=== PATIENT | female | born 1940 | race Caucasian/White ===

== ENCOUNTER → 2016-10-29 | Outpatient (CLI) | payer OTHER | LOC: RAD 01:07 | DX: Z12.31 Encounter for screening mammogram for malignant neoplasm of breast (principal) ==

== ENCOUNTER → 2017-06-10 | Outpatient (CLI) | payer OTHER | LOC: CAT 11:27 | DX: Z13.6 Encounter for screening for cardiovascular disorders (principal) ==

== ENCOUNTER → 2017-11-04 | Outpatient (CLI) | payer OTHER | LOC: RAD 11-02 09:54 | DX: Z12.31 Encounter for screening mammogram for malignant neoplasm of breast (principal) ==

== ENCOUNTER 2019-04-27 12:20 | Inpatient (IN) | payer OTHER ==
[~2019-04-27] VITALS: Ht 167.6 cm; Wt 94.8 kg
[2019-04-27 15:03] VITALS: BP 158/84
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
--- NOTE | 2019-04-28 05:23 | NUR ---
ASSUMED CARE ON 04/27/19 @ 19:30, SITTING IN DAY ROOM SOCIALIZING WITH PEERS. COOOPERATED WITH ASSESSMENT, HRRR, LUNGS CTA, ABD SOUNDS N X 4 Q. REPORTS BM ON 04/27 OF NORMAL SIZE AND CONSISITENCY. REPORTS HEARS SOUNDS IN ROOM, AND LIKES THE DAY ROOM. PRN TYLENOL 650 PROVIDED @ 2100 FOR GENERAL PAIN AND TRAZADONE 50 MG PROVIDED @ 21:50 FOR INSOMNIA. STILL AWAKE @ 0015, 50MG TRAZADONE PROVIDED @ AT THAT TIME. SLEPT WELL UNTIL APROXIMATELY 0400, AWAKENED AND CHANGED CLOTHES, REQUESTED SHOES AND WAS PROVIDED SHOES MINUS THE SHOELACES. BED IN LOW POSITION, UP AD AFSHAN. WILL CONTINUE TO MONITOR Q 12 MINUTES FOR PATIENT SAFETY.
--- NOTE | 2019-04-28 05:54 | NUR ---
SLEEP 4.2 HOURS
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
[2019-04-28 09:22] VITALS: BP 126/55
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
--- NOTE | 2019-04-28 09:47 | NUR ---
WOUND CONSULT; ASSESSMENT OF THE LEFT MEDIAL LEG: THE AREA HAS S/S CONSISTANT WITH VENOUS STASIS, SCARRING AND HEMOSIDERIN STAINING. THERE IS A HEALTHY/STABLE SCAB. NO S/S OF INFECTION OR ANY OTHER ACUTE PROSESS. RECOMMENDATIONS: 1-PAINT SCAB WITH BETADINE 2-BORDER FOAM CHANGE M/W/F 3-A ONE LAYER UBIGRIP. DISCUSSED WITH MAXIMO
[2019-04-28 10:10] VITALS: BP 126/35
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
[2019-04-28 14:19] LABS: TSH 2.341 uIU/mL (0.358-3.740)
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
[2019-04-28 19:38] VITALS: BP 135/69
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
[2019-04-29 08:00] VITALS: BP 162/82
--- NOTE | 2019-04-29 09:00 | NUR ---
Assumed care of patient this am. Patient in good spirits, calm and cooperative. Patient ambulates with walker. Patient takes medications whole with fluids. Patient denies hi/si. Patient denies pain. Patient affect soft. Patients assessment shows clear breath sounds, active bowel sounds, and s1 s2 heard with auscultation. Patient denies auditory or visual hallucinations at this time. Will continue to monitor.
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
[2019-04-29 19:15] VITALS: BP 143/91
--- NOTE | 2019-04-29 22:55 | NUR ---
ASSUMED CARE ON 04/29 @ 19:15. SITTING IN DAY ROOM AT A TABLE FACING THE TV. COOPERATED WITH ASSESSMENT, HRRR, LUNGS CTA ALL BARROW, ABD SOUNDS NORMAL X 4Q. ORIENTED TO SELF AND , CURRENT DATE ONLY 2 DAYS OFF. ABLE TO NAME PRESIDENT AND HOSPITAL, PURPOSE OF ADMISSION TO [facility]. REPORTS 25% OF SADNESS AND WORRY, DENIES AH, AND VH AT THIS TIME. TOOK HS MEDS WHOLE WITH WATER, PROVIDED TYLENOL FOR 5/10 GENERAL PAIN AND TRAZADONE 50 FOR INSOMNIA. FOLLOW UP NOTED TO BE SLEEPING. LAYING DOWN IN HER DAY CLOTHES OF COMFORTABLE ATHLETIC CLOTHES. REPORTS LBM YESTERDAY ON 04/28. BED IN LOW POSITION. WILL CONTINUE TO MONITOR Q 12 MINUTES FOR PATIENT SAFETY.
[2019-04-29 23:03] VITALS: BP 143/91
--- NOTE | 2019-04-30 04:25 | NUR ---
HAS SLEPT POORLY AND AWAKENED @ 0400. REPORTS IS THINKING ABOUT HER LIFE, THE GOOD AND THE BAD, AND IS UNABLE TO STAY ASLEEP. TYLENOL 650 PROVIDED FOR GENERAL DISCOMFORT RATED 4/10 AND SNACK OF MILK PROVIDED. TOILETED WITH SMALL BM OUTPUT AND VOIDING URINE. WILL CONTINUE TO MONITOR.
--- NOTE | 2019-04-30 05:26 | NUR ---
ALTERNATELY ASLEEP AND AWAKE ALL NIGHT, SLEPT 8.6 HOURS
[2019-04-30 09:12] VITALS: BP 150/89
[2019-04-30 10:43] VITALS: BP 150/89
--- NOTE | 2019-04-30 13:07 | NUR ---
PATIENT HAS BEEN UP AND OUT ON THE UNIT, AMBULATES WITH SLOW STEADY GAIT. PATIENT IS ALERT AND ORIENTED X 3-4, ABLE TO MALE NEEDS KNOWN. PATIENT TOOK ALL MEDICATION WHOLE WITHOUT DIFFICULTY. PATIENT IS EATING MEALS, AND DRINKING FLUID FAIRLY WELL. PATIENT DENIES SUICIDAL/ HOMICIDAL IDEATION. MOOD IS DEPRESSED, AFFECT IS BLUNTED. PATIENT CONTINUE TO HAVE AUDITORY HALLUCINATION, STATES " I HEAR PHONE RINGING, AND PEOPLE SINGING". NO AGITATION OR AGGRESSION NOTED. PATIENT IS CALM, COOPERATIVE WITH CARE. NO SIGN OF ACUTE DISTRESS NOTED, WILL MONITOR FOR SAFETY.
[2019-04-30 20:54] VITALS: BP 135/78
--- NOTE | 2019-05-01 04:15 | NUR ---
Assumed care of pt @ 1900. Pt calm et cooperative this shift. Took medications whole without difficulty. Ambulates halls ad pema with steady gait. VSWNL. Health assessment with no abnormalities other than previously recorded. Denies SI/HI @ present time. Currently resting in bed with eyes closed. Will continue to monitor per protocol.
[2019-05-01 06:19] LABS: ABSOLUTE NEUTROPHILS 3.9 thou/uL (1.4-8.2); BASOPHILS 0.5 % (0.0-2.0); EOSINOPHILS 1.8 % (0.0-3.0); HEMATOCRIT 38.4 % (37.0-47.0); HEMOGLOBIN 12.2 gm/dL (12.0-15.0); LYMPHOCYTES 12.9 % (24.0-44.0); MCH 26.7 pg (26.0-34.0); MCHC 31.8 g/dL (28.0-37.0); MCV 83.8 fL (80.0-100.0); PLATELET COUNT 106 thou/uL (150-400); POLYS 74.8 % (36.0-66.0); RBC 4.58 mil/uL (4.20-5.00); RDW 16.1 % (10.5-14.5); WBC 5.2 thou/uL (4.0-11.0)
[2019-05-01 07:09] LABS: ALBUMIN 2.5 g/dL (3.4-5.0); CALCIUM 9.5 mg/dL (8.5-10.1); CREATININE 1.2 mg/dL (0.6-1.0); POTASSIUM 3.8 mmol/L (3.5-5.1); TOTAL BILIRUBIN 0.4 mg/dL (<0.1-1.0); TOTAL PROTEIN 6.5 g/dL (6.4-8.2)
[2019-05-01 07:37] VITALS: BP 138/82
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
[2019-05-01 19:56] VITALS: BP 126/58
[2019-05-01 21:15] VITALS: BP 126/58
--- NOTE | 2019-05-02 04:32 | NUR ---
1950 Pt. sitting in day room with other patients. Affect is flat as she interacts with other patients. Pt. is up ad pema with walker and uses a BSC with assist x 1. Gait slow and steady. No signs or symptoms of distress noted. 2100 Pt. took medications whole and with thin liquids. No choking or coughing noted. Dressing to left lower leg, ankle and foot is dry and intact. No drainage noted. 2200 FSBS - 141. 2400 Pt. resting quietly in bed. Eyes closed and respirations are even and non-labored. No signs or symptoms of distress noted. .
[2019-05-02 07:24] LABS: ABSOLUTE NEUTROPHILS 3.8 thou/uL (1.4-8.2); BASOPHILS 0.5 % (0.0-2.0); EOSINOPHILS 1.2 % (0.0-3.0); HEMATOCRIT 38.3 % (37.0-47.0); HEMOGLOBIN 12.5 gm/dL (12.0-15.0); LYMPHOCYTES 12.8 % (24.0-44.0); MCH 27.5 pg (26.0-34.0); MCHC 32.7 g/dL (28.0-37.0); MCV 84.2 fL (80.0-100.0); MONOCYTES 7.9 % (1.0-8.0); POLYS 77.6 % (36.0-66.0); RBC 4.55 mil/uL (4.20-5.00); RDW 16.2 % (10.5-14.5); WBC 4.9 thou/uL (4.0-11.0)
[2019-05-02 07:53] LABS: CREATININE 1.5 mg/dL (0.6-1.0); MAGNESIUM 1.8 mg/dL (1.8-2.4); PHOSPHORUS 4.2 mg/dL (2.5-4.9)
[2019-05-02 08:58] LABS: PLATELET COUNT 97 thou/uL (150-400); PLATELET ESTIMATE DECREASED
[2019-05-02 09:04] VITALS: BP 150/72
--- NOTE | 2019-05-02 11:12 | NUR ---
WOUND CARE F/U; ASSESSED THE LEFT MEDIAL ANKLE TODAY. THE SCAB REMAINS STABLE. NO S/S OF INFECTION. RECOMMENDATIONS; CONTINUE CURRENT POC, WOUND CARE WILL FOLLOW UP WEEKLY. DISCUSSED WITH MAXIMO
--- NOTE | 2019-05-02 11:18 | NUR ---
WOUND CARE F/U; THE PATIENTS BUTTOCKS AREAS ARE HEALED. THE BILATERAL HEELS ARE OFFLOADED WELL WITH NO S/S OF PRESSURE. THE PATIENT HAS A FECAL MANAGEMENT SYSTEM IN PLACE AND IT IS EFFECTIVE. RECOMMEDNATION; CONTINUE POC DISCUSSED WITH STAFF
--- NOTE | 2019-05-02 11:42 | NUR ---
HAS BEEN VISIBLE IN DAYROOM-ATTENDING SCHEDULED ACTIVITIES. FLAT AFFECT AND DELAYED VERBAL RESPONSES. POOR EYE CONTACT AND HEAD DOWN,CHIN TO CHEST-DOES REPORT SOME NECK PAIN AND STIFFNESS-TYLENOL 650MGPOPRN AT 1100 FOR NECK PAIN. USING ROLLER WALKER FOR AMBULATION. BP MILDLY ELEVATED AT 150/72-REPEATED AFTER AM BP MEDS AND IS 140/78. DENIES A/V HALLUCINATIONS THIS SHIFT. ORIENTED TO PERSON/PLACE.
--- NOTE | 2019-05-02 15:02 | NUR ---
Demario met with pt's dght and Dr sanchez. She was educated on the meds list and labs. This included discussing the d/c plan which can be SNF rehab before going home. DEMARIO provided ht with the rehab choice list and asked for 3 choices to send referrals to by tomorrow. it is understood that pt would be ready to d/c by the end of the week.
[2019-05-02 20:38] VITALS: BP 112/68
[2019-05-02 21:45] VITALS: BP 112/68
[2019-05-02 22:06] LABS: CORTISOL RANDOM 12.9 ug/dL (())
[2019-05-02 23:08] LABS: GLYCOHEMOGLOBIN (HGB A1C) 5.6 % (4.8-5.6)
--- NOTE | 2019-05-03 05:05 | NUR ---
05/02/19 at 2145 Pt. up ad pema with walker. Pt. has kyphosis. Gait is slow and steady. Pt. has to be reminded to look forward. Pt. has propensity to stare at floor while walking. Pt. has flat affect and is calm and cooperative. Pt. swallowed medications with thin liquids. No coughing or choking noted with thin liquids. No s/s of delusional or paraoid behavior. Pt. denies SI/HI/AH/VH. 05/03/19 0115 Dressing change done to left medial ankle and patient tolerated well.
[2019-05-03 07:45] VITALS: BP 129/73
--- NOTE | 2019-05-03 11:27 | HC ---
[facility] [place] [address] CONSULTATION Name: GREGORIO GENAO Room #: 521B-B ADM IN M.R.#: [id number] Admission: 04/27/19 Attend Phys: Oracio Crawford DO Discharge: Date of : 42 Report #: [id number] THIS REPORT FOR: cc: Sanju Dominguez,Abril Page MD ~ CC: Oracio Dominguez DATE OF SERVICE: 05/02/2019 ENDOCRINE CONSULTATION NOTE CONSULTING PHYSICIAN: Dr. Christine. REASON FOR CONSULTATION: Hypoglycemia. PRIMARY CARE PHYSICIAN: Dr. Sanju Dominguez. HISTORY OF PRESENT ILLNESS: This is a 78-year-old female patient who was [facility] on 04/27/2019 [facility] with visual hallucinations and a tentative diagnosis of unspecified psychosis with mild neurocognitive disorder. During her hospital stay, the patient was noted to have multiple episodes of hypoglycemia; however, without neuroglycopenia in the form of seizures, loss of consciousness or other neurological manifestations. I conversed with the patient earlier today and she explained that she would occasionally appreciate hypoglycemic symptoms in the form of anxiety, tremors, sweating, hunger. She said that these have been happening more frequently, but could not specify the exact frequency that would be. She was not able to specify a setting in which these are more likely to happen. Namely whether or not they had a relationship to food intake, physical activity or other parameters. The patient notes that she has had longstanding issues with imbalance, occasional falls, lightheadedness, dizziness, but not loss of consciousness. She does not believe that her body weight had changed dramatically over the past few months. The patient does not recall having had major medicinal changes made recently to her regimen. She has never been diagnosed with diabetes mellitus in the past and has never been on antidiabetic agents that she recalls. REVIEW OF SYSTEMS: CONSTITUTIONAL: Fatigue, tiredness, but not fever or chills or body weight changes. HEENT: Negative for sore throat, sinus congestion, pain or ear drainage. PULMONARY: Occasional shortness of breath, occasional dyspnea on exertion, but no cough or hemoptysis. CARDIAC: Occasional dyspnea on exertion and occasional lower extremity [address] [address] CONSULTATION Name: GREGORIO GENAO Room #: 521B-B ADM IN .R.#: [id number] Admission: 04/27/19 Attend Phys: Oracio Crawford DO Discharge: Date of : 42 Report #: [id number] swelling, palpitations, lightheadedness, but not chest pain. NEUROLOGY: Imbalance, lightheadedness, dizziness, occasional falls. No loss of consciousness, no seizure activity. PSYCHIATRIC: As noted above, it appears the patient has had issues with paranoia and hallucinations lately. Otherwise, review of systems noncontributory other than those mentioned in HPI. PAST MEDICAL HISTORY: Hypertension, sinus bradycardia, chronic kidney disease. Obesity. CURRENT MEDICATIONS: Include losartan 50 mg daily, famotidine 20 mg daily, vitamin D 50,000 units daily, risperidone 1 mg b.i.d., amlodipine 5 mg daily, trazodone 50 mg p.r.n. ALLERGIES: No known drug allergies. FAMILY HISTORY: Noncontributory. SOCIAL HISTORY: The patient denies use of tobacco, alcohol or illicit drugs. She quit smoking more than 15 years ago. PHYSICAL EXAMINATION: GENERAL: female patient who is not in apparent pain or distress. She is sitting comfortably at the side of her bed. VITAL SIGNS: Blood pressure 150/72 mmHg, heart rate is 54 beats per minute, respirations 19 per minute, temperature 36.1 degrees. CONSTITUTIONAL: The patient is sitting comfortably at the side of her bed, does not appear to be in pain or distress. HEENT: Anicteric sclerae. Intact extraocular motions. NECK: Supple, without JVD. No thyromegaly. CHEST: Noted for moderate entry bilaterally with scattered rales and rhonchi. HEART: Regular rate and rhythm without murmurs or gallops. ABDOMEN: Soft, lax, no tenderness, no guarding: Active bowel sounds. EXTREMITIES: Lower extremity exam, trace ankle edema bilaterally. No skin breaks or ulcerations. Pedal pulses are appreciated. NEUROLOGIC: Awake, alert and interactive, grossly nonfocal. Uses a walker for ambulation. PSYCHIATRY: Soft spoken. No eye contact. Flat mood. Flat affect, but able to answer my questions appropriately. LABORATORY DATA: Blood glucose values recorded here ranged from 114-141 mg/dL. Sodium 138, potassium 4.0, chloride 102, CO2 of 30, anion gap 6, BUN 27, creatinine 1.5, glucose 82. That was 55 on 04/30/2019. AST 22, total bilirubin 0.4, calcium 10.0, phosphorus 4.2, magnesium 1.8, alkaline phosphatase 76, ALT 27, total protein 6.5, albumin 2.5, EGFR 34. White blood count 4.9, hemoglobin 12.5, hematocrit 38.3, platelets 97. TSH 2.34. Hemoglobin A1c is done and is [address] [address] CONSULTATION Name: GREGORIO GENAO Room #: 521B-B ADM IN M.R.#: [id number] Admission: 04/27/19 Attend Phys: Oracio Crawford, Discharge: Date of : 41 Report #: [id number]. Vitamin D was done and was 28.2. ASSESSMENT AND PLAN: 1. Hypoglycemia. As noted above, there has been a concern about recurrent hypoglycemia. The patient's history is vague, nonspecific and does not contribute much to the differential diagnosis. The documentation of hypoglycemia has actually yielded one value that might qualifies it as rjjr-fq-[id number] hypoglycemia. The difficulty here is that of ensuring that the Whipple's triad is fulfilled to identify true hypoglycemia, which is the occurrence of numerically low blood glucose values along with hypoglycemic symptoms and then demonstrating reversal of symptoms by correcting her blood glucose values back to normal limits. That said, it is feasible that these values do not necessarily represent a true occurrence of hypoglycemia. In order to give the patient the benefit of doubt, I will screen her for adrenal insufficiency with a random cortisol level. Also, I will entertain the possibility of reactive hypoglycemia through the measurement of hemoglobin A1c along with glucose and insulin levels. Absolute hyperinsulinemia as is the case of an insulinoma is exceedingly unlikely per se and especially in this age. However, this would be considered should the preliminary workup and her outlook suggest that. In the meantime, continue with blood glucose monitoring routinely and supportive measures as needed for hypoglycemia. 2. Hypertension. The patient's level of blood pressure control has been mostly within reasonable limits, continue the current regimen. 3. Chronic kidney disease. The patient's laboratory workup was consistent with stage 3 chronic kidney disease, continue with the current regimen and maintain adequate control of blood pressure. 4. Paranoia and depression. This is under the active management of Psychiatry. I will defer to their team on this issue. 5. Vitamin D deficiency. I agree with the active vitamin D3 replacement therapeutic plan. I have reviewed the patient's clinical care notes, laboratory data both past and present for over 35 minutes. I certainly appreciate this consultation by Dr. Christine. <ELECTRONICALLY SIGNED> By: Abril Miller MD 05/03/19 1127 [id number] Abril Miller MD /nt
[2019-05-03 12:11] LABS: C-PEPTIDE 8.5 ng/mL (1.1-4.4); INSULIN 18.1 uIU/mL (2.6-24.9)
--- NOTE | 2019-05-03 15:39 | NUR ---
Demario spoke with pts dght and she had concerns that her mom did not have a shower since Sat and how has a yest infection on her stomach skin folds, she also " looks snowed" but is not getting psych meds. She was also concerned that her mom didnt have her eyeglasses and that her dentures kept falling out during meals. DEMARIO provided empathetic listening and told her this would be reported to Dr Dave and nursing. DEMARIO then followed up with Dr Dave and Sandra MARSH and both were already aware of the concenrs as [facility] had already spoken to Sandra. SHe also reported that she would like the rehad referral be sent to [facility], [facility] and [facility] for skilled. This was completed.
[2019-05-03 16:30] VITALS: BP 112/65
[2019-05-03 17:08] VITALS: BP 124/76
--- NOTE | 2019-05-03 17:22 | NUR ---
INITIAL ASSESSMENT THIS AM PT IN DINING ROOM EATING WITH PEERS- SLOW TO RESPOND BUT RESPONSES ARE APPROPRIATE TO QUESTIONS ASKED. DOES REPORT NECK PAIN RATED A 4 ON 1-10 SCALE. DURING AM ASSESSMENT NOTED TO HAVE LARGE REDDENED AREA TO ABDOMINAL FOLDS WITH FOUL SMELLING WHITE DRAINAGE. ALSO NOTED TO HAVE EXCORIATION TO RECTUM AND ANUS. SHOWERED AND NYSTATIN POWDER APPLIED. TRANSFERS WITH SBA X1 OF STAFF. AND AMBULATED WITH USE OF ROLLER WALKER IN HALLWAYS
[2019-05-03 17:45] LABS: ABSOLUTE NEUTROPHILS 4.6 thou/uL (1.4-8.2); BASOPHILS 0.2 % (0.0-2.0); EOSINOPHILS 0.6 % (0.0-3.0); HEMATOCRIT 36.9 % (37.0-47.0); HEMOGLOBIN 11.8 gm/dL (12.0-15.0); LYMPHOCYTES 7.2 % (24.0-44.0); MCH 26.9 pg (26.0-34.0); MCV 84.2 fL (80.0-100.0); MONOCYTES 6.6 % (1.0-8.0); PLATELET COUNT 90 thou/uL (150-400); POLYS 85.4 % (36.0-66.0); RBC 4.39 mil/uL (4.20-5.00); RDW 16.1 % (10.5-14.5); WBC 5.4 thou/uL (4.0-11.0)
[2019-05-03] MEDS ORDERED: NORVASC5 MG PO (17:46)
[2019-05-03] MEDS ORDERED: COZAAR 50 MG TA50 M1 PO (17:46)
[2019-05-03] MEDS ORDERED: VITAMIN D325 MCG PO (17:46)
[2019-05-03] MEDS ORDERED: PEPCID20 MG PO (17:46)
[2019-05-03] MEDS ORDERED: NYAMYC15 GM TOP (17:46)
[2019-05-03] MEDS ORDERED: GLUCAGEN1 MG/1 ML IM (17:46)
[2019-05-03] MEDS ORDERED: GLUTOSE GEL 1515 G1 PO (17:46)
[2019-05-03 17:50] LABS: BE(vivo) -0.3 mmol/L (-2 to +3); PCO2 43.1 mmHg (35.0-45.0); PO2 99.8 mmHg (80.0-100.0); pH 7.381 (7.360-7.450); sO2 97.4 % (92.0-98.0)
[2019-05-03 18:20] LABS: ALBUMIN 3.1 g/dL (3.4-5.0); CALCIUM 9.6 mg/dL (8.5-10.1); CREATININE 1.5 mg/dL (0.6-1.0); MAGNESIUM 1.6 mg/dL (1.8-2.4); POTASSIUM 4.2 mmol/L (3.5-5.1); TOTAL BILIRUBIN 0.4 mg/dL (<0.1-1.0); TOTAL PROTEIN 6.7 g/dL (6.4-8.2)
--- NOTE | 2019-05-03 21:51 | NUR ---
AT 1515 BED EXIT ALARM SOUNDED AND PT GETTING OUT OF BED,ASSISTED TO TOILET AND URINATED APPROX 200 CC DARK YELLOW URINE. DENIES COMPLAINTS-SLOW TO RESPOND TO QUESTIONS ASKED BUT RESPONSES APPROPRIATE. DID ENTER PEERS ROOM BUT WAS EASILY REDIRECTED STATING TO THIS NURSE "THEY LOOK ALIKE" CT TRANSPORT HERE TO GET PT AT APPROX. 1530-ASSISTED TO WC AND MECHANICAL METER TESTER ACCOMPNIED OFF UNIT TO EXAM PER UNIT POLICY. MECHANICAL METER TESTER REPORTED PATIENT STATES SHE SAW CATS IN THE ELEVATOR ON THE WAY TO EXAM. RETURNED TO UNIT AT APPROX. 1615-ALERTED BY FAMILY VISITING PT AT APPROX 1630 THAT SHE APPEARED MORE DROWSY-ASSISTED TO BED WITH 2 STAFF AND VS OBTAINED-112/65 P-60 R14 02 SAT 96 PERCENT-AXILLARY TEMP ATTEMPTED. SKIN COOL AND DRY. RESPONDS TO VERBAL COMMAND. NEURO CHECKS DONE ANTONIO-RIGHT [employer]ODUCER STRONG-SLIGHTLY DECREASED ON LEFT HAND. DOES STATE SHE FEELS SLIGHT PAIN "BEHIND MY RIGHT EYE" DR. ELIZABETH CONTACTED AND ORDERS RECEIVED-ASKED TO COME TO UNIT TO ASSESS PT PER FAMILY REQUEST-LAB CALLED AND REQUESTED LABS ORDERED BE DONE STAT. 2ND RN TO ROOM TO ASSESS PT M. READY AT APPROX 1705-NEUROCHECKS REPEATED AND UNCHANGED-HR REGULAR WITH BRADYCARDIA RATE 58 AND REGULAR-2ND SET OF VS OBTAINED-PT NOTED TO FEEL COOL TO TOUCH-AXILLARY TEMP ATTEMPTED X2 AND RECTAL TEMP OBTAINED AND IS 94.1. REMAINS RESPONSIVE TO VERBAL STIMULI. DR ELIZABETH AT BEDSIDE AT APPROX 1730-DR. CHANEL CONTACTED VIA PHONE AND TO UNIT AT 1745. PICKENS CATHETOR INSERTED AT 1745 AND DRAINING CLEAR YELLOW URINE. LAB TO BEDSIDE AT APPROX 1750 FOR STAT LABS, STAT ABGS DRAWN AT APPROX 1750-ORDERS RECIEVED TO TRANSFER TO ICU AND NURSING IN HOUSE COUNSEL CONTACTED AT APPROX 1800-CALL BACK AT 1815 WITH CCU ROOM NUMBER AND REPORT CALLED T0 JULES IN CCU. X-RAY HERE AT APPROX.1820 AND STAT CHEST X-RAY COMPLETED. URINE CULTURE TO LAB AT APPROX 1825. PT DISCHARGED AT APPROX 1840 TO CCU-IS RESPONSIVE AND VERBAL AT TIME OF DC ALTHOUGH REMAINS SOMULENT-PERSONAL BELONGINGS SENT-DC VIA CART ACCOMPNIED BY 2 RNS,S AND DAUGHTER PACO LEFT UNIT 5 MINUTES PRIOR TO DEPARTURE AND AWARE OF PENDING DC AND TRANSFER TO CCU.
[2019-05-03 23:31] LABS: URINE BILIRUBIN NEGATIVE (Negative); URINE BLOOD NEGATIVE (Negative); URINE CLARITY CLEAR; URINE COLOR YELLOW; URINE GLUCOSE-RANDOM* NEGATIVE (Negative); URINE KETONES TRACE (Negative); URINE LEUKOCYTES-REFLEX NEGATIVE (Negative); URINE NITRITE-REFLEX NEGATIVE (Negative); URINE PROTEIN (DIPSTICK) 2+ (Negative); URINE SPECIFIC GRAVITY >= 1.030 (1.005-1.035); URINE UROBILINOGEN 0.2 E.U./dl (0.2-1.0)
[2019-05-03 23:55] LABS: SQUAMOUS 0-3 Few /LPF (0-3)
[2019-05-03 23:56] LABS: BACTERIA-REFLEX 1-9 Few /HPF (None Seen); CALCIUM OXALATE 4-10 Moderate /LPF (None Seen); HYALINE CASTS 0-3 Few /LPF (None Seen); MUCUS 0-3 Light strn/LPF (None Seen); URINE RBC 3-10 Few /HPF (0-2); URINE WBC-REFLEX 0-5 Rare /HPF (0-5)
--- NOTE | 2019-05-04 12:43 | EKG ---
[facility] [place] [address] ELECTROCARDIOGRAM REPORT Name: GREGORIO GENAO Room #: 52[facility] DIS IN M.R.#: [id number] Admission: 04/27/19 Attend Phys: Oracio Crawford DO Discharge: 05/03/19 Date of : 41 Report #: [id number] THIS REPORT FOR: cc: Sanju Dominguez Theodore M. DO Lundgren, Craig H. MD LOCATED [facility]IN [facility] ~ THIS REPORT FOR: //name// [facility] Test Date: 2019-05-03 Test Time: 18:59:42 Pat Name: GREGORIO GENAO Department: Room: [facility] B Gender: F Emt Paramedic: Jj RICHTER : 1940 Requested By: Teresa Christine Order Number: [id number] MD: Joshua Benavidez Measurements Intervals Kitt[place] Rate: 60 P: 83 ND: 186 QRS: 62 QRSD: 103 T: -46 QT: 474 QTc: 474 Interpretive Statements Sinus rhythm Ventricular premature complex Nonspecific ST segment abnormality Compared to ECG 10/01/1999 15:07:43 Left bundle-branch block no longer present Electronically Signed On 05-04-2019 8:54:16 [employer]ELINE [employer]PERINT[employer] by Joshua Benavidez [email or web address] <ELECTRONICALLY SIGNED> By: Joshua Benavidez MD, FAC 05/04/19 0854 58 58 Joshua Benavidez MD, [facility] /EPI
== END 2019-05-03 18:33 | disposition short-term general hospital (02) | DRG 885 ==
LOC: SBH 14:09
PROVIDERS: Internal Medicine; ADMIT Psychiatry & Neurology Psychiatry
DX: F29 Unspecified psychosis not due to a substance or known physiological condition (principal); E87.1 Hypo-osmolality and hyponatremia; N18.3 Chronic kidney disease, stage 3 (moderate); E16.2 Hypoglycemia, unspecified; I12.9 Hypertensive chronic kidney disease with stage 1 through stage 4 chronic kidney disease, or unspecified chronic kidney disease; E66.9 Obesity, unspecified; R00.1 Bradycardia, unspecified; E78.5 Hyperlipidemia, unspecified; E55.9 Vitamin D deficiency, unspecified; T68.XXXA Hypothermia, initial encounter; L98.499 Non-pressure chronic ulcer of skin of other sites with unspecified severity; F03.90 Unspecified dementia, unspecified severity, without behavioral disturbance, psychotic disturbance, mood disturbance, and anxiety; Z90.10 Acquired absence of unspecified breast and nipple; Z88.2 Allergy status to sulfonamides; Z68.33 Body mass index [BMI] 33.0-33.9, adult; Z88.8 Allergy status to other drugs, medicaments and biological substances; Z91.018 Allergy to other foods
CPT/HCPCS: 10880

== ENCOUNTER 2019-05-03 18:56 | Inpatient (IN) | payer OTHER ==
[~2019-05-03] VITALS: Ht 167.6 cm; Wt 88.1 kg
--- NOTE | ~2019-05-03 | HC ---
[place] [address] CONSULTATION Name: GREGORIO GENAO Room #: 246-P ADM IN M.R.#: [id number] Admission: 05/03/19 Attend Phys: Teresa Christine MD Discharge: Date of : 41 Report #: [id number] THIS REPORT FOR: cc: Sanju Dominguez,Long Miller MD ~ CC: Teresa Dominguez DATE OF SERVICE: 05/13/2019 HISTORY OF PRESENT ILLNESS: The patient is a 78-year-old white female with a prior history of a [facility] stay for some paranoia and hallucinations and some severe depression. While there, she had the onset of a rapid response, initially hypothermic with a temperature of 93. She became semi-comatose, was transferred down to the ICU. 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 She had respiratory failure, was intubated, bradycardia. She was treated for acute renal insufficiency and pneumonia. She has since been extubated. She has severe dysphagia. We are seeing her in rehabilitation medicine consultation. PAST MEDICAL HISTORY: Includes chronic kidney disease stage 3, hypertension, and hyperlipidemia. PAST SURGICAL HISTORY: Includes mastectomy 29 years ago for breast cancer. ALLERGIES: LISINOPRIL. FAMILY HISTORY: Noncontributory. HABITS: Lifetime nonsmoker, no history of alcohol abuse. SOCIAL HISTORY: She lives in a house alone. I am uncertain regarding steps. There is an involved daughter. Premorbidly, she utilized a quad cane, although she was using a walker around the [facility] as they apparently do not allow canes. REVIEW OF SYSTEMS: No current complaints of chest pain, shortness of breath or abdominal discomfort. PHYSICAL EXAMINATION: GENERAL: A 78-year-old white female seen in the intensive care unit. NEUROLOGIC: She is alert, pleasant, and soft spoken. She has obvious right gaze preference and is unable to look past midline to the left. She has a left facial droop. She is able to follow basic 1 step commands. EXTREMITIES: She has dense left upper extremity plegia with some flexion [address] [place] [address] CONSULTATION Name: GREGORIO GENAO Room #: 246-P [facility] IN M.R.#: [id number] Admission: 05/03/19 Attend Phys: Teresa Christine MD Discharge: Date of : 41 Report #: [id number] posturing. Negative Mayo's and no clonus. Left lower extremity, she does have venous stasis changes and does have some volitional strength probably a grade 3+ to 4-/5. She has functional range of motion and strength of the right upper and right lower extremity, a grade 4-/5. Sensation was somewhat difficult to assess. She tended to be inconsistent, but she does appear to have some decrease on the left. She definitely has the visual decrease. Functionally, she is mod assist with sit to stand and was actually able to stand, mod assist taking about 5 steps handheld. ASSESSMENT: A 78-year-old white female with the following problem list: 1. 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 2. Left upper extremity plegia with lower extremity paresis. 3. Left homonymous hemianopsia. 4. Severe dysphagia, pureed honey thickened liquid. 5. Acute hypoxia with respiratory failure, now improved and extubated. 6. Chronic kidney disease. 7. Bradycardia, resolved. 8. Pneumonitis. 9. Hypertension. 10. Hyperlipidemia. PLAN: Therapies are working with her on functional mobility and swallowing, visual perceptual issues. Occupational therapy is to evaluate. Insurance will need to be checked regarding rehab therapy issues as she further medically stabilizes. Would anticipate she should be a good candidate for an acute in-hospital inpatient rehabilitation stay. We will need to check with the daughter regarding support at home, etc. We will be glad to follow along with you regarding rehab therapy issues as she further medically stabilizes. By: 1415 1542 Long Navas MD /nt
[~2019-05-03 18:56] MED LIST: COZAAR 50 MG TA50 M1 PO; GLUCAGEN1 MG/1 ML IM; GLUTOSE GEL 1515 G1 PO; NORVASC5 MG PO; NYAMYC15 GM TOP; PEPCID20 MG PO; VITAMIN D325 MCG PO
[2019-05-03 19:33] VITALS: BP 156/86
--- NOTE | 2019-05-03 19:39 | NUR ---
ASSUMMED PT CARE AT APPROXIMATELY 1845. PT AWAKE AND ORIENTED TO SELF. WHEN CONNECTED TO TELEMETRY PACK. PT HR IN 30S. WHILE IN REPORT, OTHER RN'S IN PT'S ROOM STARTED TO SEE DECLINE IN PT'S STATUS AND CALLED HUDSON VALLEJO. SEE HUDSON VALLEJO REPORT SHEET. PT COMFORTABLE IN BED. PT STATED "I FEEL BETTER NOW." VITAL SIGNS STABLE.
[2019-05-03 19:50] LABS: HEMATOCRIT 39.8 % (37.0-47.0); HEMOGLOBIN 12.6 gm/dL (12.0-15.0); MCH 26.9 pg (26.0-34.0); MCHC 31.7 g/dL (28.0-37.0); MCV 84.7 fL (80.0-100.0); RBC 4.7 mil/uL (4.20-5.00); RDW 16.2 % (10.5-14.5); WBC 5.3 thou/uL (4.0-11.0)
[2019-05-03 20:01] LABS: CHOLESTEROL 189 mg/dL (<200); HDL CHOLESTEROL 110 mg/dL (>40); LDL CHOLESTEROL 69 mg/dL (<100); TC:HDL 1.7 Ratio (Not establshd); TRIGLYCERIDE 52 mg/dL (<150); TROPONIN-I 0.08 ng/mL (<0.06); VLDL 10 mg/dL (<40)
[2019-05-03 20:08] LABS: PROTIME 10.5 Seconds (9.3-11.4)
[2019-05-03 20:14] LABS: FOLIC ACID 8.8 ng/mL (8.6-58.9); TSH 1.375 uIU/mL (0.358-3.740)
[2019-05-03 20:25] LABS: CALCIUM 9.9 mg/dL (8.5-10.1); CREATININE 1.4 mg/dL (0.6-1.0); POTASSIUM 4.3 mmol/L (3.5-5.1)
[2019-05-03 20:30] LABS: TOTAL BILIRUBIN 0.4 mg/dL (<0.1-1.0); TOTAL PROTEIN 7.2 g/dL (6.4-8.2)
--- NOTE | 2019-05-03 20:46 | NUR ---
TALKED TO DR. ELIZABETH. DR. ELIZABETH STATED TO START RECAL TEMPS AND TO START BEAR HUGGER DUE TO LOW TEMP READING. COMMUNICATED C TECHNICIAN INVENTORY SPECIALIST RN. TECHNICIAN INVENTORY SPECIALIST RN STATED UNDERSTANDING AND DENIED HAVING FURTHER QUESTIONS.
[2019-05-03 20:49] VITALS: BP 143/93
[2019-05-04] VITALS (36 sets, daily range): BP systolic 91–167; BP diastolic 47–72
[2019-05-04 00:08] LABS: INR 1.1; PROTIME 11.4 Seconds (9.3-11.4)
--- NOTE | 2019-05-04 04:25 | NUR ---
PT WAS AN ADMIT FROM FROM [facility] AND SHIFT CHANGE. PT IS ADMITTED WITH HYPOTHERMIA, TEMP UNABLE TO OBTAIN. NO FAMILY AT BEDSIDE. PT BECAME UNRESPONSIVE, RR WAS CALLED. ORDERS PUT IN BY PHYSICIAN. YOKASTA RIVERA PLACED ON PATIENT FOR TEMPRATURE. ORAL TEMP FINALLY OBTAINED AT 0300 AM. ORDERS IMPLEMENTED. ADMISSION EDUCATION AND ASSESSMENT COMPLETED WITH DAUGHTER. PT IS VERY LETHAGIC AND NOT RESPONDING. SCHEDULED MEDS ADMINISTERED TO PT. CONTINUE TO MONITOR PATIENT.
[2019-05-04 05:53] LABS: ABSOLUTE NEUTROPHILS 3.7 thou/uL (1.4-8.2); BASOPHILS 0.1 % (0.0-2.0); EOSINOPHILS 0.1 % (0.0-3.0); HEMATOCRIT 36.3 % (37.0-47.0); HEMOGLOBIN 11.4 gm/dL (12.0-15.0); LYMPHOCYTES 4.6 % (24.0-44.0); MCH 26.6 pg (26.0-34.0); MCHC 31.5 g/dL (28.0-37.0); MCV 84.4 fL (80.0-100.0); MONOCYTES 2.4 % (1.0-8.0); PLATELET COUNT 101 thou/uL (150-400); POLYS 92.8 % (36.0-66.0); RBC 4.31 mil/uL (4.20-5.00); RDW 15.7 % (10.5-14.5)
[2019-05-04 06:26] LABS: ALBUMIN 2.6 g/dL (3.4-5.0); CALCIUM 9.2 mg/dL (8.5-10.1); CREATININE 1.3 mg/dL (0.6-1.0); PHOSPHORUS 2.6 mg/dL (2.5-4.9); POTASSIUM 4.5 mmol/L (3.5-5.1)
[2019-05-04 09:20] LABS: URINE BLOOD 1+ (Negative); URINE CLARITY CLOUDY; URINE COLOR YELLOW; URINE GLUCOSE-RANDOM* NEGATIVE (Negative); URINE KETONES NEGATIVE (Negative); URINE NITRITE-REFLEX NEGATIVE (Negative); URINE PROTEIN (DIPSTICK) 2+ (Negative); URINE SPECIFIC GRAVITY >= 1.030 (1.005-1.035)
[2019-05-04 09:23] LABS: URINE LEUKOCYTES-REFLEX 1+ (Negative)
[2019-05-04 09:24] LABS: ICTOTEST (BILI CONFIRMATORY) Negative (Negative); URINE BILIRUBIN NEGATIVE (Negative)
[2019-05-04 10:00] LABS: BACTERIA-REFLEX 1-9 Few /HPF (None Seen); CASTS None Seen /LPF (None Seen); CRYSTALS None Seen /LPF (None Seen); SQUAMOUS None Seen /LPF (0-3); URINE WBC-REFLEX 6-15 Few /HPF (0-5)
--- NOTE | 2019-05-04 13:37 | NUR ---
ASSUMED CARE AT SHIFT CHANGE, PATIENT IS LATHERGIC AND NOT RESPONDING VERBALLY, AND VSS. DR ELIZABETH NOTIFIED AT 0756, AND STAT NEURO CONSULT DONE. DR ANSARI NOTIFIED ABOUT THE MRI/MRA RESULTES. REPORT GIVEN TO MAXIMO MORALES AND PATIENT TRANSFERED TO ICU.
--- NOTE | 2019-05-04 13:51 | NUR ---
REQUEST NEW P.T. REQUISITION ONCE PT MEDICALLY STABLE. INITIAL P.T. ORDER RECEIVED UPON PT TRANSFER FROM SB TO CCU PRIOR TO FURTHER DECLINE IN MEDICAL STATUS AND TX TO ICU.
--- NOTE | 2019-05-04 14:18 | NUR ---
Patient on [facility] unit from Apr 28-. 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 Phys reports MRI indicated need for [facility] with neuro radiology. Called [facility] transfer team and [facility]. Faxed pertinent information and uploaded disc to cloud. [facility] sp with attending and not accepting. Nothing further to be done from their standpoint. [facility] also sp with attending as well. Patient intubated and sedated, transferred to ICU room 250. [facility] on chart, chart copied if transfer cont to be pursued.
--- NOTE | 2019-05-04 14:46 | 2DMMODE ---
[address] [address] 2 D/M-MODE ECHOCARDIOGRAM Name: GREGORIO GENAO Room #: 250-P ADM IN M.R.#: [id number] Admission: 05/03/19 Attend Phys: Teresa Christine MD Discharge: Date of : 42 Report #: [id number] THIS REPORT FOR: cc: Sanju Dominguez Theodore M. DO Lundgren, Craig H. MD [facility] ~ APPROVED REPORT Study performed: 05/04/2019 13:58:51 EXAM: Comprehensive 2D, Doppler, and color-flow Echocardiogram Patient Location: ICU Room #: 250 Status: routine BSA: 2.03 HR: 66 bpm BP: 111/47 mmHg Rhythm: Sinus arrhythmia Other Information Study Quality: Good/patient flat on back on vent in ICU. Indications Hypothermia. 2D Dimensions RVDd: 31.41 mm IVSd: 10.94 (7-11mm) LVOT Diam: 19.14 (18-24mm) LVDd: 44.56 mm PWd: 10.91 (7-11mm) Ascending Ao: 32.50 (22-36mm) LVDs: 31.16 (25-40mm) Aortic Root: 29.67 mm Volumes Left Atrial Volume (Systole) Single Plane 4CH: 46.87 mL Single Plane 2CH: 71.43 mL LA ESV Index: 36.00 mL/m2 Aortic Valve AoV Peak Tian.: 1.80 m/s AO Peak Gr.: 12.98 mmHg LVOT Max P.92 mmHg LVOT Max V: 1.41 m/s FRANSISCA Vmax: 2.25 cm2 [facility] [address] [address] 2 D/M-MODE ECHOCARDIOGRAM Name: GREGORIO GENAO Room #: 250-P [facility] IN ..#: [id number] Admission: 05/03/19 Attend Phys: Teresa Christine, Discharge: Date of : 42 Report #: [id number] Mitral Valve E/A Ratio: 0.8 MV Decel. Time: 244.14 ms MV E Max Tian.: 0.68 m/s MV A Tian.: 0.86 m/s MV PHT: 70.80 ms IVRT: 107.27 ms Pulmonary Valve PV Peak Tian.: 1.03 m/s PV Peak Gr.: 4.28 mmHg Pulmonary Vein P Vein S: 0.73 m/s P Vein A: 0.38 m/s P Vein D: 0.42 m/s P Vein A Dur.: 107.3 msec P Vein S/D Ratio: 1.74 Tricuspid Valve RAP Estimate: 10.00 mmHg Left Ventricle The left ventricle is normal size. There is normal LV segmental wall motion. Borderline concentric left ventricular hypertrophy. Left ventricular systolic function is normal. LVEF is 60-65%. Mild diastolic dysfunction is present (impaired relaxation pattern). Right Ventricle The right ventricle is normal size. The right ventricular systolic function is normal. Atria The left atrium size is normal. The right atrium size is normal. Aortic Valve The aortic valve is normal in structure. No aortic regurgitation is present. There is no aortic valvular stenosis. Mitral Valve The mitral valve is normal in structure. Trace mitral regurgitation. Tricuspid Valve The tricuspid valve is normal in structure. There is no tricuspid valve regurgitation noted. Unable to assess PA pressure. [facility] [place] [place] [address] 2 D/M-MODE ECHOCARDIOGRAM Name: GREGORIO GENAO Room #: 250-P ADM IN M.R.#: [id number] Admission: 05/03/19 Attend Phys: Teresa Christine, Discharge: Date of : 42 Report #: [id number] Pulmonic Valve The pulmonary valve is normal in structure. Mild pulmonic regurgitation. Great Vessels The aortic root is normal in size. The ascending aorta is normal in size. IVC is normal in size and collapses <50% with inspiration. Pericardium There is no pericardial effusion. <Conclusion> Left ventricular systolic function is normal. There is normal LV segmental wall motion. LVEF is 60-65%. Mild diastolic dysfunction The aortic valve is normal in structure. No aortic regurgitation or stenosis The mitral valve is normal in structure. Trace mitral regurgitation. Unable to assess pulmonary artery pressure. There is no pericardial effusion. <ELECTRONICALLY SIGNED> By: Joshua Benavidez MD, FACC 05/04/19 1445 1445 1445 Joshua Benavidez MD, FAC /INF
[2019-05-04 15:14] LABS: BE(vivo) -3.3 mmol/L (-2 to +3); HCO3 20.5 mmol/L (22.0-26.0); PO2 135.1 mmHg (80.0-100.0); pH 7.411 (7.360-7.450); sO2 98.8 % (92.0-98.0)
--- NOTE | 2019-05-04 18:10 | NUR ---
VASCULAR ACCESS TEAM CONSULTED FOR PICC LINE DISCUSSED BENEFITS AND RISK WITH DAUGHTER,VERBALIZED UNDERSTANDING. PT'S LABS,MEDS,HISTORY,ORDER AND CONSENT VERIFIED. MARVIN CEPHALIC WAS WIDELY PATENT BUT UNABLE TO PASS GUIDEWIRE PAST SHOULDER. MARVIN BRACHIAL WAS WIDELY PATENT WITH USG, TL PICC 5FR TRIMMED TO 42CM INSERTED TO 2CM EXTERNAL. STAT CXR OBTAINED STATES PICC TOO DEEP WITHDREW ADDITIONAL 4CM FOR TOTAL OF 6CM EXTERNAL STAT CXR ORDERED
--- NOTE | 2019-05-04 19:54 | NUR ---
2ND CXR INCONCLUSIVE DUE TO PT'S POSITION. 3RD CXR ORDERED. PICC CONFIRMED AT [facility]. PICC RELEASED FOR IMMEDIATE USE PER PROTOCOL.
--- NOTE | 2019-05-04 20:49 | NUR ---
PT TX FROM 2N AT 1300. INTUBATED BY DR ANSARI AT THE BEDSIDE. [facility] REFUSE TO ADMIT, OUTSIDE OF TIME RANGE. WILL TREAT PT MEDICALLY HERE. PT UNRESPONSIVE PICC LINE AT BEDSIDE, REQUIRED 3 CXR TO CONFIRM PLACEMENT AFTER PULLBACK.
--- NOTE | 2019-05-04 22:29 | NUR ---
ASSUMED CARE OF PATIENT AT 1900. PATIENT HR AT THAT TIME WAS CONSISTENTLY IN THE 50'S. AFTER 2114 PATIENT HR WAS CONSISTENTLY IN THE 40'S. VERSED GTT STOPPED AT 2155. AT 223O PATIENT HR AT 44. GROUP CHIEF OPERATOR GABE NOTIFIED OF PT DROPPING HR. NO NEW ORDERS RECEIVED. GROUP CHIEF OPERATOR REPORTED SHE WILL LOOK INTO PATIENTS CHART.
--- NOTE | 2019-05-04 23:37 | NUR ---
PATIENT TEMPERATURE 93.6 F AT 1137. YOKASTA HUGGER APPLIED TO HELP PATIENT MAINTAIN NORMAL TEMPERATURE.
[2019-05-05] VITALS (77 sets, daily range): BP systolic 108–173; BP diastolic 54–89
[2019-05-05 05:20] LABS: BE(vivo) -3.4 mmol/L (-2 to +3); HCO3 20.4 mmol/L (22.0-26.0); PCO2 32.3 mmHg (35.0-45.0); PO2 147.8 mmHg (80.0-100.0); pH 7.418 (7.360-7.450)
[2019-05-05 05:42] LABS: HEMATOCRIT 31.2 % (37.0-47.0); MCH 26.8 pg (26.0-34.0); MCV 83.9 fL (80.0-100.0); RBC 3.72 mil/uL (4.20-5.00); RDW 16.1 % (10.5-14.5); WBC 5.6 thou/uL (4.0-11.0)
[2019-05-05 05:49] LABS: CALCIUM 8.2 mg/dL (8.5-10.1); CREATININE 1.3 mg/dL (0.6-1.0); POTASSIUM 3.6 mmol/L (3.5-5.1)
--- NOTE | 2019-05-05 09:33 | NUR ---
PATENT TRANSFERRED TO ICU. OCCUPATIONAL THERAPY IS ON HOLD DUE TO CHANGE IN STATUS. NEED NEW O.T. ORDERS IF/WHEN APPROPRIATE.
--- NOTE | 2019-05-05 10:24 | H ---
[facility] [place] [address] HISTORY AND PHYSICAL Name: CHADWICKGREGORIO BECKY Room #: 250-P ADM IN M.R.#: [id number] Admission: 05/03/19 Attend Phys: Teresa Christine MD Discharge: Date of : 41 Report #: [id number] THIS REPORT FOR: //name// CC: Teresa Leosdoreen Dominguez DATE OF SERVICE: 05/03/2019 CHIEF COMPLAINT: Altered mental status and hypothermia starting late this afternoon. HISTORY OF PRESENT ILLNESS: The patient is a very pleasant 78-year-old female who was seen this morning on [facility] for a followup of hypoglycemia where she is being admitted for paranoia and evaluation of severe depression along with paranoid ideation. The patient was admitted from [facility] of [facility] after she had been admitted for hypothermia from the Emergency Room. The patient was evaluated for sepsis and treated; however, as she was recovering, she was noted to have auditory and visual hallucination. She also noted the same thing at her apartment as well as in her daughter's house as well and therefore was admitted to [facility]. The patient has not been feeling well for last 3 weeks prior to the admission to [facility] and she has had multiple admissions to the Emergency Room as well as to the primary care physician for what the daughter describes as upper respiratory infection or flu-like illness. Daughter herself was dealing with Mara aldana, who is the durable power of attorney at law for health as well as the emergency contact. The patient's daughter informed me that she was trying to stay away from her mother while her mother was going through all this flu-like illness and going back and forth to the Emergency Room for evaluation of confusion as well as fever as well as hypothermia as well as noted to have hypoglycemia on one of the visits. The patient this morning did not have any complaints except just fatigue; however, she finished 100% of her breakfast and she was able to brush her teeth by herself and was working with occupational therapy when I saw her earlier this morning. Later during the day at [facility] what Dr. Dave described as getting slower at all during the afternoon and so the CT scan of the head was done by Dr. Dave to make sure that there is not anything neurologically. The patient had continued nonfocal neurological exam and the CT head was negative. However, after she came back from CT scan, the patient was extremely somnolent and was noted to be hypothermic and so Dr. Dave and myself evaluated the patient and discussed with the family about possible differential diagnosis for hypothermia as sepsis or some autonomic dysfunction or any pulmonary infection is possible. However, the patient has not had any cough, fever or chills in recent past, but the flu-like illness was 3 weeks ago and the patient has resolved from that. Anyway chest x-ray was ordered while she was in the [facility] and the patient had mild cardiomegaly with pulmonary venous engorgement and left basilar opacification likely consolidation with pleural effusion on the single view. The patient was started on Rocephin and [facility] [address] [place] [address] HISTORY AND PHYSICAL Name: CHADWICKGREGORIO BECKY Room #: 250-P ADM IN M.R.#: [id number] Admission: 05/03/19 Attend Phys: Teresa Christine MD Discharge: Date of : 41 Report #: [id number] vancomycin as she has been in the hospital. The patient has also had noted decreased oral intake and a Goddard catheter was put at the [facility] and the patient was noted to have decreased urine output. However, once the patient was transferred to CCU for workup of hypothermia as well as altered mental status, the patient had bradycardia and so code blue was called. However, the patient remained to have a pulse all the time along with breathing spontaneously on her own, was noted to have oxygen saturation 88%, which resolved very quickly with oxygen by nasal cannula and the patient was much more alert and awake by the time rapid response team assessment was done. Patient was able to answer my questions; was not oriented to place but when asked her daughter's name; she verbalized Mara and was responding appropriately for taking deep breaths when asked during exam and moving all 4 extremities.Empiric hydrocortisone was given along with a normal saline bolus and after much discussion and consideration since the patient has been immobile and has a high risk for pulmonary embolism with unclear cause and since we cannot get a stat CT scan because of her chronic kidney disease stage 3, I would go ahead and give one empiric dose of heparin and monitor the patient closely for platelet count and we will get a V/Q scan tomorrow morning or if the renal function improves, then CTA tomorrow morning. The patient is also at risk for aspiration as well. So, we will go ahead and get speech therapy consult for swallow evaluation tomorrow morning and we will treat it as possible underlying aspiration pneumonia. Anyway, the whole plan of care was discussed with the patient's daughter, Mara, who is the durable power of attorney at law for health and also with the RN taking care of the patient in ICU. Differential diagnosis was discussed with them my colleagues, Dr. Dave as well as Dr. Fabian, who is also a hospitalist colleague of [facility]. We will go ahead and get [facility]. PAST MEDICAL, FAMILY AND SOCIAL HISTORY: Obtained from chart review as well as from the daughter. ALLERGIES: LISINOPRIL. SOCIAL HISTORY: The patient does not use any tobacco, alcohol or recreational drug and is a lifetime nonsmoker. FAMILY HISTORY: Not available. SURGICAL HISTORY: The patient has had mastectomy 29 years ago, left breast for breast cancer and has been cancer free according to the daughter. CURRENT MEDICATIONS: Prior to the admission here was Inderal LA 60 mg daily, Norvasc 5 mg daily, Zocor 10 mg daily and losartan 50 mg daily. PAST MEDICAL HISTORY: Significant for chronic kidney disease stage 3, hypertension, hyperlipidemia and according to the daughter, the patient has been [address] [address] HISTORY AND PHYSICAL Name: GREGORIO GENAO Room #: 250-P [facility] IN .R.#: [id number] Admission: 05/03/19 Attend Phys: Teresa Christine MD Discharge: Date of : 41 Report #: [id number] pretty independent in her activities of daily living except using walker for gait instability for the last couple of weeks to month. REVIEW OF SYSTEMS: Decreased appetite and decreased oral intake for last 2-3 days. The patient informs me that she did not like the food well. Other than that the patient has not had any complaints and was noted to have altered mental status with the slowing as well as hypothermia late this afternoon, which progressively got worse with somnolence and so the patient was transferred to the acute medical floor. According to the nurses at a [facility], the patient has not had any hematochezia, melena, dysuria or hematuria and the patient has not had any weakness or numbness of any part of the body and has been working with a PT and OT using her walker and ambulating from room to the dining area as well as counseling room without any problems; however, the gait has been really slow and activity has been very limited besides walking. No other activity. The patient denied any weakness or numbness of any part of the body and she was able to do her activities of daily living earlier this morning without any help. PHYSICAL EXAMINATION: VITAL SIGNS: The patient at the time of evaluation at [facility] prior to transfer, temperature was 33.9, heart rate 56, respirations 24, blood pressure 124/76, pulse oximeter 98% on room air. HEENT: Pupils were equally round, reactive to light. Conjunctivae clear. Sclerae are nonicteric. Oropharynx clear. Mucous membranes moist. Angle of mouth symmetrical. Tongue midline. Speech clear. NECK: Supple, no JVD, no lymphadenopathy. HEART: S1, S2, regular. LUNGS: Poor effort, but decreased breath sounds bilaterally at the bases, bilaterally symmetrical chest expansion present. No chest wall tenderness elicited. Left mastectomy, well-healed scar noted. ABDOMEN: Soft, nontender, nondistended, normal active bowel sounds. The patient has indwelling Goddard catheter placed in [facility] this evening after altered mental status was noted. EXTREMITIES: The patient has a rash in the breast fold as well as in the groin and lower extremity, the patient has no edema, but has a skin breakdown of a dime size when she was trying to put her ANTONIETA hose. She peeled the skin and that is where the patient has skin breakdown with eschar formation, but no erythema noted. SKIN: Dry otherwise intact. NEUROLOGIC: Nonfocal. The patient is moving all 4 extremities. Speech normal, pupils equal, reactive to light, able to follow commands. LABORATORY DATA AND X-RAYS: Labs and x-rays. WBC 5.3, hemoglobin 12.6, hematocrit 39.8, platelet count 95. Troponin I 0.08, triglycerides 52, cholesterol 189, LDL 69, VLDL 10, HDL 110 and recent labs from the blood gas from the [facility], right before the transfer was pH 7.381, pCO2 [address] [place] [address] HISTORY AND PHYSICAL Name: GREGORIO GENAO Room #: 250-P ADM IN M.R.#: [id number] Admission: 05/03/19 Attend Phys: Teresa Christine MD Discharge: Date of : 41 Report #: [id number] 43.1, pO2 99.8 and oxygen saturation 96.2% on room air. Lactic acid was 0.70 and the patient had a GFR of 34 and all the electrolytes were within normal limits. Hemoglobin A1c was 5.6. C-peptide was elevated at 8.5 and lactic acid today was 0.8, calcium 9.6, phosphorus 4.2, magnesium was 1.6, low total bilirubin 0.4, AST 46, ALT 51, alkaline phosphatase 86. Troponin I 0.08 and prior to that was 0.06. Third one is pending. At the time of dictation, albumin 3.1 and vitamin B12 was 3394. Vitamin D was 28. TSH was normal at 2.341 and random cortisol was 12.9 on 05/02/2019. D-dimer was elevated at 0.9 and chest x-ray indicates a left basilar opacification likely consolidation with pleural effusion, mild cardiomegaly with pulmonary venous engorgement noted and the head CT indicates no acute process, no hemorrhage noted and venous Doppler was done in 2010 and that had showed extremity varicose vein thrombosis. Recent venous Doppler from today for both lower extremities is pending. ASSESSMENT AND PLAN: 1. Severe hypothermia, likely secondary to infection. We will continue to monitor the patient closely with vital signs q.2-4 hours as needed until the temperature normalizes. TSH is normal. Stress dose of hydrocortisone in given in the setting of bradycardia and decreased mentation and hypothermia of unclear etiology or likely sepsis; however, the patient does not meet sepsis criteria, does not have tachycardia, does not have hypotension. Lactic acid is normal and likely consolidation or pneumonia noted. For somnolence; accuchks, neuro aexam, fall precaution and neurology consult entered. Neurological exam is nonfocal and patient does not have any history of diabetes, heart disease or stroke in past and daughter was sure there is no hisotry of blood clots. 2. Possibly right lower lobe pneumonia, so we would go ahead and start Rocephin as well as Flagyl for covering possible aspiration pneumonia. 3. Cellulitis or ulcer on the leg. Wound care team was consulted when the patient was in [facility]. We will go ahead and reconsult them tomorrow and also we will add vancomycin to the antibiotics regime until the blood cultures are back. Two sets of blood cultures have been done. 4. Chronic kidney disease stage 3 with acute worsening. GFR is 34. The patient's baseline GFR is around 40-45. We will go ahead and give gentle hydration overnight and we will recheck kidney function tomorrow morning. 5. Hypomagnesemia. We will go ahead and give one dose of magnesium sulfate if it has already not been given on [facility] and recheck magnesium and phosphorus tomorrow morning. 6. For hypoglycemia of unclear etiology, we will continue hydrocortisone stress dose for now and we will consult Endocrinology to follow along. 7. For altered mental status with decreased mentation, likely multifactorial with hypothermia as well as with hypoglycemia; however, during all this, a rapid response team as well as transfer from the [facility], her sugar has stayed above 94-100 range; however, we will consider getting MRI of the brain to make sure the patient does not have any ischemic stroke, after hypothermia and infection is corrected. [facility] [address] [place] [address] HISTORY AND PHYSICAL Name: GREGORIO GENAO Room #: 250-P ADM IN M.R.#: [id number] Admission: 05/03/19 Attend Phys: Teresa Christine MD Discharge: Date of : 41 Report #: [id number] 8. Mildly elevated troponin, likely secondary to bradycardia and stress. For the increased demand, we will go ahead and recheck third set of troponin and will do echocardiogram tomorrow morning to make sure the patient has normal ejection fraction. 9. Candidiasis of the groin as well as breast fold. We will go ahead and use nystatin cream. 10. Gastrointestinal prophylaxis with Pepcid and deep vein thrombosis prophylaxis with renal dose of Pepcid and heparin for subcutaneous prophylaxis. 11. Thrombocytopenia. I am not sure about the etiology of thrombocytopenia, but we would go ahead and add fibrinogen and if there is consumptive coagulopathy, then the patient could have thrombocytopenia and low fibrinogen secondary to that. 12. Sinus bradycardia. The patient was on Inderal at [facility] as well as at home 90 mg daily. We will go ahead and hold beta blockers at the current time and will consider not starting back. EKG shows sinus bradycardia with a mild QTc of 474 at the time of admission, but today's EKG is pending. We would go ahead and consult PT, OT and speech therapy. Approximately 15-20 minutes were spent talking to the family here as well as at the [facility] and plan of care was discussed with Dr. Dave as well as with the family and with the RN taking care of the patient in the [facility] as well as in the CCU. <ELECTRONICALLY SIGNED> By: Teresa Christine MD 05/05/191023 20 215 MD abimael Browning
--- NOTE | 2019-05-05 10:51 | HC ---
[facility] [place] [address] [place] [address] CONSULTATION Name: GREGORIO GENAO Room #: 250-P ADM IN M.R.#: [id number] Admission: 05/03/19 Attend Phys: Teresa Christine MD Discharge: Date of : 41 Report #: [id number] THIS REPORT FOR: cc: Sanju Dominguez,Abril Page MD ~ CC: Teresa Dominguez DATE OF SERVICE: 05/04/2019 ENDOCRINE CONSULTATION NOTE CONSULTING PHYSICIAN: Dr. Christine. REASON FOR CONSULTATION: Hypoglycemia. HISTORY OF PRESENT ILLNESS: This is a 78-year-old female patient whose medical background is significant for multiple medical issues including psychosis, paranoia, obesity, hypertension as well as a suspicion of hypoglycemia. The patient was admitted to the [facility] earlier this month due to behavioral changes that were reflective of possible paranoia and depression. I had seen her there and started an evaluation process for the possibility of hypoglycemia with which there was a concern due to the documentation of at least 1 blood glucose value in the 50 mg/dL range. The patient was transferred to the [address] [place] [address] Unit of [facility] yesterday due to what appeared to be increasing somnolence, mental status changes and it was felt that she needed closer monitoring. An MRI study done earlier today was suggestive of an acute CVA and the patient was subsequently transferred to the ICU for further care and monitoring. This was felt to be consistent with a large right middle cerebral arterial distribution affecting the right frontal lobe, temporal lobe, parietal lobe and occipital lobe. REVIEW OF SYSTEMS: Could not be obtained from the patient given her intubated state. PAST MEDICAL HISTORY: Obesity, hypertension, paranoia, depression, GERD, vitamin D deficiency, history of breast cancer, chronic kidney disease. MEDICATIONS: Most recent medications included amlodipine 5 mg daily, losartan 50 mg daily, famotidine 20 mg at bedtime, vitamin D3. ALLERGIES: ALCOHOL, LISINOPRIL, NIACIN, and SULFA. FAMILY HISTORY: Noncontributory. [facility] [address] [place] [address] CONSULTATION Name: GREGORIO GENAO Room #: 250-[facility] IN .R.#: [id number] Admission: 05/03/19 Attend Phys: Teresa Christine MD Discharge: Date of : 41 Report #: [id number] SOCIAL HISTORY: She is an ex-smoker and does not have active use of alcohol or illicit drugs. PHYSICAL EXAMINATION: GENERAL: female patient who is mechanically intubated. VITAL SIGNS: Blood pressure is 162/72 mmHg, heart rate is 67 beats per minute, respirations 21 per minute, temperature 37.2 Celsius. CONSTITUTIONAL: The patient is mechanically ventilated, sedated, nonresponsive. HEENT: Anicteric sclerae. NECK: Supple, no JVD, no thyromegaly CHEST: Moderate air entry bilaterally with scattered rales. HEART: Regular rate and rhythm without murmurs or gallops. ABDOMEN: Soft and lax. No guarding. Active bowel sounds. EXTREMITIES: Lower extremity exam negative for ankle edema, skin breaks or ulcerations. NEUROLOGIC: Sedated and unresponsive, and uncooperative. PSYCHIATRIC: Unresponsive, sedated. LABORATORY DATA: Radiology results are as noted above in terms of her brain MRI. Blood glucose values over the past 4 days have ranged between 81 as the lowest blood glucose and 130 and 141 mg/dL as the highest blood glucose value. Sodium 136, potassium 4.5, chloride 103, anion gap 6, BUN 27, creatinine 1.3. AST 49, total bilirubin 0.4, calcium 9.2, phosphorus 2.6, magnesium 1.6, alkaline phosphatase 52, total protein 7.2, albumin 2.6, EGFR 40. Lactic acid 0.8. Total cholesterol 189, triglycerides 52, HDL 110, LDL 69. INR 1.1. White blood count 4.0, hemoglobin 11.4, hematocrit 36.3, platelets 101. TSH 1.375. Hemoglobin A1c 5.6%, insulin 18.1, C-peptide 8.5. ASSESSMENT AND PLAN: 1. Hypoglycemia. As noted above, there was a concern about potential hypoglycemia as the patient had one value that was at 55 mg/dL. At that time, I had wanted to investigate the patient for such a possibility and after interviewing the patient, there did not seem to be a compelling history for hypoglycemia. Her hemoglobin A1c was high normal at 5.6%. Her random cortisol was normal at 12.9. Her insulin level was normal at 15.1 and C-peptide was slightly elevated at 8.5. Furthermore, she has not developed further hypoglycemia that was documented. In short, the patient did not fulfill the Whipple's triad definition for hypoglycemia and that I question whether she indeed can be labeled as having hypoglycemia. Given her stability and the low likelihood of hypoglycemic disorder, I do not at this point recommend further workup. I certainly do not mind the inclusion of dextrose in her fluid support methodology while in the ICU. 2. Neurology. As noted above, unfortunately the patient was found to have an [facility] [address] [place] [address] CONSULTATION Name: GREGORIO GENAO Room #: 250-P ADM IN M.R.#: [id number] Admission: 05/03/19 Attend Phys: Teresa Christine MD Discharge: Date of : 41 Report #: [id number] acute cerebrovascular accident with seemingly a massive reach. She is currently intubated and hospitalized in the ICU for further care and monitoring. Further planning is as per the Neurology team. 3. Hypertension. The patient's level of blood pressure control is above the usual median and this would be helpful short term in the setting of recent ischemic cerebrovascular accident. 4. Hyperlipidemia. The patient is currently on atorvastatin and tolerates it well, she is to continue the same. I certainly appreciate this consultation by Dr. Christine. As noted above, I do not at the present time recommend further workup for the matter of hypoglycemia. However, I will be surely glad to address any concerns or questions emerging regarding her care, as we go forward. I reviewed the patient's clinical care notes, laboratory data, radiologic data past and present and those surrounding the events of her transfer to the ICU earlier today for over 35 minutes. <ELECTRONICALLY SIGNED> By: Abril Miller MD 05/05/19 [id number] Abril Miller MD /nt
--- NOTE | 2019-05-05 15:02 | NUR ---
respiratory coordinator to see pt. pt sedated and intubated. withdrawls from painful stimuli. awaiting CT results. reviewed MRI. o famiily at bedside. will continue to follow.
--- NOTE | 2019-05-05 15:38 | NUR ---
Recommend start vital high protein goal of 55ml/hr. Recommend dc ivf once tube feed tolerated as pt has 250ml water flushes ordered every 6hr
--- NOTE | 2019-05-05 19:16 | NUR ---
1000 RN REPORTED DECREASED UO AND BP TO BANDAY, ORDERS TO START LEVOPHED. BANDAY ORDERED VERSED TO BE RESTARTED AND FENT PRN IVP. PT REMAIN ON VENT, MINIMAL RIGHT WRIST TWITCHING, PT HAS COUGH, GAG AND CORNEAL REFLEX, WITHDRAWS TO DEEP PAIN STIMULATION. TEMP STABLE. WILL MONIOTR CLOSELY. 1400 PT UO CONTINUES TO BE DECREASED, BANDAY AWARE OF OUTPUT. 1600 DAUGHTER AT BEDSIDE, BANDAY REQUEST RN TO CORRECTLY INFORM FAMILY TO STROKE IS ON THE RIGHT SIDE OF THE BRAIN. DAUGHTER PREVIOUSLY TOLD THAT STOKE WAS ON LEFT SIDE BY ELAN. 1625 BATCHU ENTERS ROOM-INCORRECTLY INFORMS DAUGHTER THAT PT DID NOT HAVE STROKE AND QUICKLY RETRACKS THAT HE IS IN THE WRONG PT ROOM. DAUGHTER IMMEDIATELY BURST INTO TEARS, AND EXCLAIMS TO THE NURSE, "SEE I TOLD YOU THERE IS NO COMMUNICATION IN THIS HOSPITAL!" SITS DOWN AND PLACES HEAD IN HANDS AND CONTINUES TO CRY LOUDLY. 1900 REPORT GIVEN GUILHERME-INFORMED OF THIS DAYS OCCURENCES.
--- NOTE | 2019-05-05 19:40 | NUR ---
ASSUMED CARE OF PATIENT AT 1900 05/05. REPORT GIVEN FROM JERI, INCLUDING THE MISCOMMUNICATION THAT OCCURED BETWEEN DOCTORS AND THE FAMILY. FAMILY CURRENTLY NOT PRESENT WITH PATIENT. PATIENT ASSESSED PER ICU PROTOCOL. PATIENT RESPONDS TO PAINFUL STIMULI ON RIGHT SIDE, BUT NOT LEFT. GAG AND CORNEAL REFLEX PRESENT. HR REMAINS IN 40'S - 50'S. AND UOP REMAINS LESS THAN 20ML/HR. BANDAY AND KO AWARE. PATIENT APPEARS COMFORTABLE. ON VERSED GTT AT 2MG/HR. ON LEVOPHED GTT AT 2 MCG/MIN TO MAINTAIN A SBP >140 PER BANDAY. PATIENT CURRENTLY NOT PROGRESSING TOWARDS GOALS. TUBE FEEDINGS WILL BE STARTED TONIGHT PER BANDAY ORDERS AND DIETARY REC.
[2019-05-06] VITALS (91 sets, daily range): BP systolic 117–195; BP diastolic 51–91
[2019-05-06 05:06] LABS: HEMATOCRIT 32.6 % (37.0-47.0); HEMOGLOBIN 10.3 gm/dL (12.0-15.0); MCH 26.8 pg (26.0-34.0); MCHC 31.7 g/dL (28.0-37.0); MCV 84.4 fL (80.0-100.0); RBC 3.86 mil/uL (4.20-5.00); RDW 15.8 % (10.5-14.5); WBC 6.1 thou/uL (4.0-11.0)
[2019-05-06 05:36] LABS: CALCIUM 8.7 mg/dL (8.5-10.1); CREATININE 1.3 mg/dL (0.6-1.0); POTASSIUM 3.6 mmol/L (3.5-5.1)
--- NOTE | 2019-05-06 12:12 | NUR ---
PT REQUIRING INCREASE OF LEVOPHED TO KEEP SBP >140 PER NEURO ORDERS. CONTACTED DR. VUONG REGARDING NEED FOR INCREASED LEVOPHED AND EEG ORDER THAT IS STILL ACTIVE. DR. VUONG ASSESSED PT, STATED HE WILL PLACE ORDERS FOR SBP TO REMAIN BETWEEN 120-140, STATED HE WILL D/C EEG ORDER DUE TO PT ON KEPPRA, STATED HE WILL COME BACK TO REASSESS PT AFTER VERSED HELD FOR 15MIN, & STATED HE WOULD LIKE VERSED TO BE TITRATED OFF IF PT ABLE TO SUSTAIN. PT CONTINUES TO REQUIRE VENT SUPPORT, RESP RATE REMAINS BETWEEN 15-16, INTUBATED WITH TUBE IN PLACE.
[2019-05-07] VITALS (88 sets, daily range): BP systolic 100–185; BP diastolic 53–99
--- NOTE | 2019-05-07 04:04 | NUR ---
ASSUMED PT CARE AT 1900. PT WAS ON LEVO AT 4. PT WAS BRADYCADIC WITH HR BETWEEN 30-40s. BP WAS ALSO HIGH WITH SYSTOLIC BETWEEN 160s-190s. LEVO TIRATED OFF, DOPAMINE GTT STARTED AT 1955 AT 3MCG AND HR AND BP HAVE STABILIZED; HR BTW 50s TO 60s, SYSTOLIC BP BTW 130s- 150. TEMP IS TRENDING UP, YOKASTA RIVERA STILL ON PT. SEDATION VACATION DONE AT 1999, WITHDRAWS ALL EXTREMITIES FROM PAINFUL STIMULI, LEFT HAND WEAKER THAN RIGHT HAND WHILE WIHDRAWING TO PAINFULL STIMULI & DOES NOT FOLLOW COMMANDS BUT MOVES RUE AND BLE RANDOMLY. PT IS STABLE NOW, LABS AND CXR DONE THIS AM. WILL CONTINUE TO MONITOR PER POC.
--- NOTE | 2019-05-07 04:33 | NUR ---
PT'S 1800 MANNITOL WAS GIVEN AT 0007 BECAUSE A 5 MICRON FILTER WAS NEEDED TO ADMINISTER THIS MED WHICH WAS NOT AVAILABLE ON THIS UNIT. MULTIPLE CALLS PLACED TO PHARMACY AND HOUSE SUPPERVISOR BEFORE A FILTER WAS FOUND AROUND MIDNIGHT IN THE PHARMACY. PT WALSH OVER 2L OF URINE OUTPUT OUT THIS SHIFT AFTER THIS MED WAS GIVEN.
[2019-05-07 06:22] LABS: ABSOLUTE NEUTROPHILS 4.9 thou/uL (1.4-8.2); BASOPHILS 0.4 % (0.0-2.0); EOSINOPHILS 1.5 % (0.0-3.0); HEMOGLOBIN 11.7 gm/dL (12.0-15.0); LYMPHOCYTES 6.9 % (24.0-44.0); MCH 26.5 pg (26.0-34.0); MCHC 31.7 g/dL (28.0-37.0); MCV 83.6 fL (80.0-100.0); MONOCYTES 8.8 % (1.0-8.0); PLATELET COUNT 128 thou/uL (150-400); POLYS 82.4 % (36.0-66.0); RBC 4.43 mil/uL (4.20-5.00)
[2019-05-07 06:53] LABS: ALBUMIN 2.4 g/dL (3.4-5.0); CREATININE 1.1 mg/dL (0.6-1.0); MAGNESIUM 1.7 mg/dL (1.8-2.4); PHOSPHORUS 2.8 mg/dL (2.5-4.9); POTASSIUM 3.7 mmol/L (3.5-5.1); TOTAL BILIRUBIN 0.4 mg/dL (<0.1-1.0); TOTAL PROTEIN 6.4 g/dL (6.4-8.2)
--- NOTE | 2019-05-07 13:42 | EKG ---
[facility] [place] [address] ELECTROCARDIOGRAM REPORT Name: WALDO GENAOLEY BECKY Room #: 246-P ADM IN M.R.#: [id number] Admission: 05/03/19 Attend Phys: Teresa Christine MD Discharge: Date of : 42 Report #: [id number] THIS REPORT FOR: cc: Sanju Dominguez Theodore M. DO Couchonnal, Luis F. MD ~ THIS REPORT FOR: //name// [facility] Test Date: 2019-05-07 Test Time: 08:28:42 Pat Name: GREGORIO GENAO Department: Room: 246 Gender: F School Age Teacher: Kemi ASCENCIO : 1940 Requested By: Dhara Tavares Order Number: [id number] MD: Meño Alexandra Measurements Intervals Teachey Rate: 56 P: 63 AL: 185 QRS: 18 QRSD: 125 T: -25 QT: 420 QTc: 406 Interpretive Statements Sinus rhythm Probable left atrial enlargement IVCD, consider atypical RBBB Left ventricular hypertrophy Compared to ECG 05/03/2019 18:59:42 Electronically Signed On 05-07-2019 13:41:42 HAND CANDY CUTTER by Meño Alexandra [email or web address] <ELECTRONICALLY SIGNED> By: Meño Alexandra MD 05/07/19 1341 7 7 Meño Alexandra MD /EPI
[2019-05-07 15:08] LABS: BE(vivo) 2.2 mmol/L (-2 to +3); PCO2 42.7 mmHg (35.0-45.0); PO2 106.1 mmHg (80.0-100.0); pH 7.419 (7.360-7.450); sO2 97.9 % (92.0-98.0)
--- NOTE | 2019-05-07 23:11 | NUR ---
ASSUMED CARE OF PT AT 0700. VERSED TURNED OFF AT 1100. MORE ALERT THIS AFTERNOON. ABLE TO FOLLOW SIMPLE COMMANDS RIGHT HAND AND WIGGLE TOES BILAT. +GAG AND COUGH REFLEX. MANNITOL GIVEN ORDERED. REPEAT CT DONE DR DISCUSSED WITH PT'S DAUGHTER. REMAINS ON DOPAMINE WITH HR 50-70'S. ABG'S DONE AND RESULTS COMMUNICATED TO DR RODRIGUEZ. VENT SETTINGS CHANGED ORDERED. PT'S DAUGHTERS AT BEDSIDE AND UPDATED THIS AFTERNOON. REPORT GIVEN TO SENIOR GRADUATE ADVISOR RN.
--- NOTE | 2019-05-07 23:50 | NUR ---
Pt tried to reached up to her ETT multiple time. 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 Will place soft restraint on her right hand to prevent self extubation.
[2019-05-08] VITALS (32 sets, daily range): BP systolic 96–159; BP diastolic 43–132
--- NOTE | 2019-05-08 01:00 | NUR ---
Her HR remains in 70's to 80's ,BP remains stable with low dose of dopamine gtt. Turn off dopamine at this time.
[2019-05-08 05:26] LABS: BE(vivo) 1.2 mmol/L (-2 to +3); PCO2 36.7 mmHg (35.0-45.0); PO2 96.4 mmHg (80.0-100.0); pH 7.451 (7.360-7.450); sO2 97.6 % (92.0-98.0)
[2019-05-08 05:30] LABS: ABSOLUTE NEUTROPHILS 4.4 thou/uL (1.4-8.2); BASOPHILS 0.4 % (0.0-2.0); EOSINOPHILS 1.7 % (0.0-3.0); HEMATOCRIT 32.6 % (37.0-47.0); HEMOGLOBIN 10.8 gm/dL (12.0-15.0); LYMPHOCYTES 11.3 % (24.0-44.0); MCH 27.6 pg (26.0-34.0); MCHC 33.1 g/dL (28.0-37.0); MCV 83.6 fL (80.0-100.0); PLATELET COUNT 128 thou/uL (150-400); POLYS 75.6 % (36.0-66.0); RDW 15.6 % (10.5-14.5); WBC 5.8 thou/uL (4.0-11.0)
[2019-05-08 05:55] LABS: CALCIUM 8.5 mg/dL (8.5-10.1); CREATININE 1.1 mg/dL (0.6-1.0); MAGNESIUM 1.9 mg/dL (1.8-2.4); PHOSPHORUS 3.1 mg/dL (2.5-4.9); POTASSIUM 3.7 mmol/L (3.5-5.1); TOTAL BILIRUBIN 0.4 mg/dL (<0.1-1.0); TOTAL PROTEIN 5.7 g/dL (6.4-8.2)
--- NOTE | 2019-05-08 06:00 | NUR ---
No changes of conditions from previous assesment. Continue to monitor any changes.
--- NOTE | 2019-05-08 19:52 | NUR ---
ASSUMED CARE OF PT AT 0645. NO CPAP TODAY DUE TO MENTATION. MOVING RIGHT SIDE OF BODY, NOTHING ON LEFT. FAMILY VERY HAPPY WITH PROGRESS. PLAN FOR REPEAT CT TOMORROW. FAMILY PUT PT'S WIG ON SO SHE FEELS MORE LIKE HERSELF. DR ELIZABETH SPOKE WITH FAMILY AT LENGTH. LITTLE PROGRESS TOWARD PLAN OF CARE.
[2019-05-08 21:11] LABS: CALCIUM 8.6 mg/dL (8.5-10.1); CREATININE 1.2 mg/dL (0.6-1.0); POTASSIUM 3.7 mmol/L (3.5-5.1)
[2019-05-09] VITALS (20 sets, daily range): BP systolic 91–161; BP diastolic 50–89
[2019-05-09 06:06] LABS: ABSOLUTE NEUTROPHILS 4.6 thou/uL (1.4-8.2); BASOPHILS 0.5 % (0.0-2.0); EOSINOPHILS 1.9 % (0.0-3.0); HEMATOCRIT 35.1 % (37.0-47.0); HEMOGLOBIN 11.2 gm/dL (12.0-15.0); LYMPHOCYTES 11.6 % (24.0-44.0); MCH 26.8 pg (26.0-34.0); MCHC 31.8 g/dL (28.0-37.0); MCV 84.2 fL (80.0-100.0); MONOCYTES 10.8 % (1.0-8.0); PLATELET COUNT 151 thou/uL (150-400); POLYS 75.2 % (36.0-66.0); RBC 4.16 mil/uL (4.20-5.00); RDW 15.8 % (10.5-14.5); WBC 6.2 thou/uL (4.0-11.0)
[2019-05-09 06:46] LABS: ALBUMIN 2.3 g/dL (3.4-5.0); CALCIUM 8.8 mg/dL (8.5-10.1); CREATININE 1.2 mg/dL (0.6-1.0); MAGNESIUM 1.8 mg/dL (1.8-2.4); PHOSPHORUS 3.4 mg/dL (2.5-4.9); POTASSIUM 3.7 mmol/L (3.5-5.1); TOTAL BILIRUBIN 0.3 mg/dL (<0.1-1.0); TOTAL PROTEIN 6.5 g/dL (6.4-8.2)
[2019-05-09 07:04] LABS: % SATURATION 24 % (20-39); IRON 59 ug/dL (50-170); TIBC 241 ug/dL (250-450)
--- NOTE | 2019-05-09 07:53 | NUR ---
SEE [facility] FOR ASSESSMENT. PT WILL AWAKENS TO VOICE, NOD YES/NO TO QUESTIONS. MOVES RT SIDE, REMAINS FLACCID ON LEFT. PT REMAINS LETHARGIC. DENIES PAIN. CONT TO GIVE LASIX ORDERED. 2400 UO FOR SHIFT. THIS AM AFTER BATH. PT HR DOWN 30, THEN STARTED VOMITING TUBE FEEDING, ZOFRAN GIVEN. PT NODDED SHE FEELS BETTER. LS-UNCHANGED, 02SAT WNL. TUBE FEEDING OFF AT THIS TIME 0630. PT SLOWLY PROGRESSING TOWARD GOALS. CT SCHEDULED THIS AM
--- NOTE | 2019-05-09 08:55 | NUR ---
chart review. rounds this am, bedside nurse reported pt is starting to move some of her right side, left side flaccid. nod yes and no. during visit pt on vent, eyes closed. no family or friends at bedside at this time. will cont following as needed for dc needs.
[2019-05-10] VITALS (31 sets, daily range): BP systolic 93–257; BP diastolic 45–231
[2019-05-10 06:47] LABS: CALCIUM 8.9 mg/dL (8.5-10.1); CREATININE 1.2 mg/dL (0.6-1.0); POTASSIUM 3.7 mmol/L (3.5-5.1)
--- NOTE | 2019-05-10 08:13 | NUR ---
SEE [facility] FOR ASSESSMENT. NEURO REMAINS UNCHANGED, REMAINS FLACCID ON LT WITH LT SIDED NEGLECT. LT PUPILS SL LARGER THAN RT. DENIES HEADACHE. DENIES BLURRED VISION. C/O OF NAUSEA OFF/ON DURING NIGHT. ANTI-NAUSEA MEDS GIVEN ORDERED. TF HELD DUE TO HIGH RESIDUAL. NO STOOLS YET DESPITE ACTIVE BS AND LAXATIVES GIVEN. WILL CONT TO MONITOR. CONT PLAN OF CARE
--- NOTE | 2019-05-10 19:16 | NUR ---
ASSUMED CARE @ 0700 05/10/19, PT ASSESSMENTS AND VSS COMPLETE PER ICU PROTOCOL. DR BENITES, DR MINA AND DR MURCIA HERE TO ROUND DURING THIS SHIFT. ORDERS RECIEVED FOR CT OF HEAD, PT TRANSPORTED, NO COMPLICATIONS NOTED. FAMILY HERE DURING SHIFT TO VISIT.
[2019-05-11] VITALS (26 sets, daily range): BP systolic 104–160; BP diastolic 32–93
[2019-05-11 06:15] LABS: CALCIUM 9.1 mg/dL (8.5-10.1); CREATININE 1.2 mg/dL (0.6-1.0); POTASSIUM 3.6 mmol/L (3.5-5.1)
[2019-05-11 10:47] LABS: BE(vivo) 3.3 mmol/L (-2 to +3); HCO3 27.2 mmol/L (22.0-26.0); PCO2 38.9 mmHg (35.0-45.0); PO2 91.9 mmHg (80.0-100.0); pH 7.463 (7.360-7.450); sO2 97.4 % (92.0-98.0)
--- NOTE | 2019-05-11 11:24 | NUR ---
ON THE VENT, DROWSY BUT AWAKENS EASILY AND WHEN AWAKE FOLLOWS COMMANDS AND NODS TO Y/N QNS. CPAP TRIAL THIS MORNING AND ABG RESULTS OBTAINED AND WILL REPORT TO DR. CHAMORRO WHEN HE ROUNDS. TUBEFEEDING PER OGT NOT AT GOAL DUE TO HIGH RESIDUALS. WILL CONTINUE TO FOLLOW POC.
[2019-05-12] VITALS (28 sets, daily range): BP systolic 92–160; BP diastolic 41–101
[2019-05-12 04:48] LABS: HEMATOCRIT 37.4 % (37.0-47.0); HEMOGLOBIN 11.8 gm/dL (12.0-15.0); MCH 26.7 pg (26.0-34.0); MCHC 31.5 g/dL (28.0-37.0); MCV 84.8 fL (80.0-100.0); RBC 4.41 mil/uL (4.20-5.00); RDW 15.6 % (10.5-14.5)
[2019-05-12 05:51] LABS: CALCIUM 8.8 mg/dL (8.5-10.1); CREATININE 1.1 mg/dL (0.6-1.0); POTASSIUM 3.5 mmol/L (3.5-5.1)
--- NOTE | 2019-05-12 06:42 | NUR ---
PATIENT ALERT AND ORIENTED X4, INTERMITTENT FORGETFUL. NO COMPLAINTS OF PAIN. PATIENT EXTOBATED 05/11/19 CURRENTLY ON ROOM AIR. NO RESPIRATORY EVENTS THROGUTH THE NIGHT, O2 SAT REMAINED ABOVE 90%. PICKENS PATENT AND DRAINING. PATIENT SINUS ARRHYTHMIA ON COMPLAINT CLERK. IV DOPAMINE DRIP FOR HEART RATE AND BLOOD PRESSURE SUPPORT. PATIENT RESTED WELL OVER NIGHT. NO SIGN OF ACUTE DISTRESS NOTED AT THIS TIME. WILL CONTINUE TO MONITOR.
--- NOTE | 2019-05-12 09:30 | NUR ---
pt off vent, new order for therapies to eval and tx.
--- NOTE | 2019-05-12 18:30 | NUR ---
PATIENT PROGRESSING TOWARDS OUTCOME GOALS EVIDENT BY, ASSIST WITH TURNING TO THE LEFT SIDE, TAKING PREED THICKENED DIET, CELIO MARVIN'Luz. DOPAMINE WEANED OFF AT 1215 TODAY. SERUM POTASSIUM WITHIN RANGE AFTER KCL DRIP. FAMILY IN. MOVING RIGHT SIDE WITH EASE. VOICE IS HOARSE/
--- NOTE | 2019-05-12 23:06 | NUR ---
PATIENT'S PICKENS REMOVED APPROX 1700 05/12. AT 2300 PATIENT STILL HAD NOT VOID. THIS RN BLADDER SCANNED PATIENT, SHOWING 190MLS. PATIENT EDUCATED ON IMPORTANCE OF TRYING TO URINATE. SHORTLY AFTER PATIENT WAS BLADDER SCANNED PATIENT VOIDED 150ML VIA PUREWICK.
[2019-05-13] VITALS (31 sets, daily range): BP systolic 87–173; BP diastolic 37–93
--- NOTE | 2019-05-13 12:00 | NUR ---
discussed during los, no anticipated dc over the weekend. pt up in recliner chair this visit. per report pt was confused thought she has the flu and was restless in bed. therapy to eval for dcp. will cont following as needed for dc needs.
--- NOTE | 2019-05-13 18:20 | NUR ---
PATIENT PROGRESSING SHE WAS UP IN THE CHAIR FOR SEVERAL HOURS TODAY. BLADDER SL DISTENTED AND TENDER TO PALPATION, BLADDER SCAN GREATER THAN 425 ML. PICKENS PLACED WITHOUT DIFFICULTY. PATIENT POCKETING FOOD AND REFUSING DINNER. DR MINA AWARE AND ORDERS NOTED. FAMILY IN TO VISIT.
[2019-05-14] VITALS (18 sets, daily range): BP systolic 123–171; BP diastolic 39–95
[2019-05-14 06:17] LABS: CALCIUM 9.5 mg/dL (8.5-10.1); CREATININE 1.1 mg/dL (0.6-1.0); POTASSIUM 3.3 mmol/L (3.5-5.1)
[2019-05-14 06:20] LABS: HEMATOCRIT 34.7 % (37.0-47.0); HEMOGLOBIN 11.2 gm/dL (12.0-15.0); MCH 27.4 pg (26.0-34.0); MCHC 32.4 g/dL (28.0-37.0); MCV 84.5 fL (80.0-100.0); RBC 4.11 mil/uL (4.20-5.00); RDW 15.4 % (10.5-14.5); WBC 7.2 thou/uL (4.0-11.0)
--- NOTE | 2019-05-14 11:47 | NUR ---
AWAKE ON AND OFF, WHEN AWAKE ORIENTED TO PERSON AND PLACE, SOMETIMES FORGETFUL AND IMPULSIVE. VITALS STABLE. UP TO THE CHAIR WITH ASSIST FROM P.T. TOLERATING DIET RECOMMENDED BY Mani PICKENS WITH MARGINAL URINE OUTPUT. ORDERS RECEIVED TO TRANSFER TO [facility] WHEN ROOM IS AVAILABLE.
--- NOTE | 2019-05-14 12:42 | NUR ---
SWALLOW REASSESSED WITH MORE ADVANCED TEXTURES AND DETERMINED TO BE AT RISK FOR ASPIRATION DUE TO ORAL MOTOR DEFICITS, OVERT SIGNS AND SYMPTOMS AND POOR AWARENESS OF THE BOLUS. RECOMMEND SHE REMAIN ON PUREED SOLIDS AND HONEY THICK LIQUIDS AT THIS TIME.
--- NOTE | 2019-05-14 16:05 | NUR ---
ORDERS RECEIVED TO TRANSFER TO [facility]/TELE, WILL TRANSFER WHEN ROOM AVAILABLE.
--- NOTE | 2019-05-14 18:09 | NUR ---
REPORT RECEIVED FROM MAXIMO FORDE. PT TRANSPORTED TO 203 FROM ICU IN RECLINER, PT ASSESSED, DOCUMENTED, VSS, BLOOD [id number], PT TRANSFERED TO BED, HOB UP TO 90 WHILE EATING, CALL LIGHT ON TABLE ACROSS PT'S LAP, WILL MONITOR.
[2019-05-15] VITALS (7 sets, daily range): BP systolic 112–160; BP diastolic 50–78
--- NOTE | 2019-05-15 04:31 | NUR ---
ASSUMED PT CARE AT 1900. PT IS ALERT AND ORIENTED WITH N SIGN OF DISTRESS NOTED IN PT. PT IS ALERT, CONFUSED. FALL PRECAUTION IN PLACE. CALL LIIGHT WITHIN REACH. VITAL SIGNS STABLE. DENIES PAIN. ASSESSMENT COMPLETED AND DOCUMETED. SCHEDULED MEDS ADMINISTERED TO PT. TOLERATED PO INTAKE. PT IS AWAKE FOR MOST OF THE REMANUFACTURING TECHNICIAN WITH CONFUSION NOTED THROUGHOUT THE NIGHT. CONTINUE TO MONITOR PT. DENIES ANY FURTHER NEEDS AT THIS TIME.
--- NOTE | 2019-05-15 14:00 | NUR ---
ASSUMED CARE AT 0700, SHIFT ASSESMENT DONE, MEDS GIVEN WITH PUDDING. BRADYCARDIC ON THE MONITOR, PT TIRED AND SLEEPING THIS AM. SKIPPED BREAKFAST, ATE SOME LUNCH. HAD A BM TODAY. AWIATING FOR REHAB PLACEMENT. WILL CONTINUE TO ASSESS AND ASSIST WITH ADLs NEEDED.
--- NOTE | 2019-05-16 02:28 | NUR ---
ASSESSMENT; PT REMAINED ALERT AND ORIENT TIMES TWO AT THE BEGINNING OF THE SHIFT. PT KNEW THE NAME OF THE HOSPITAL, HER AND HER FULL NAME. NOT SURE OF WHY SHE IS HOSPITALIZD NOR OF THE DAY OF THE WEEK. PT WAS NOT LETHARGIC. POSSIBLE DC TO REHAB TOMORROW. PICKENS PATENT WITH DARK, SEDIMENTS. LOOSE STOOLS TIMES ONE. PT IS A FEEDER. VSS, SB PER MONITOR.
[2019-05-16 02:37] LABS: HEMATOCRIT 34.8 % (37.0-47.0); MCH 26.7 pg (26.0-34.0); MCHC 31.5 g/dL (28.0-37.0); MCV 84.5 fL (80.0-100.0); RBC 4.12 mil/uL (4.20-5.00); RDW 15.5 % (10.5-14.5); WBC 6.2 thou/uL (4.0-11.0)
[2019-05-16 02:39] LABS: CALCIUM 9.4 mg/dL (8.5-10.1); CREATININE 1.1 mg/dL (0.6-1.0); POTASSIUM 3.3 mmol/L (3.5-5.1)
[2019-05-16 04:45] VITALS: BP 136/58
[2019-05-16 07:47] VITALS: BP 171/74
--- NOTE | 2019-05-16 09:01 | NUR ---
ASSUMED CARE OF PT APPROX 0715, ALERT TO SELF, BDATE, AND AT TIMES, PRESIDENT. IS NOT IMPULSIVE THUS FAR. PT STATES SHE HAS A CANE YET HASN'T WALKED IN A LONG TIME. USES BEDPAN PER REPORT. GENERALIZED ALL OVER MINIMAL ACHES AND PAINS. USES CALL LIGHT FOR NEEDS; WILL CHART IN ROOM MUCH POSSIBLE SHOULD SHE CALL OUT FROM BEING SCARED. SEE SEPARATE INTERVENTIONS FOR ASSESSMENTS. 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 ENCOURAGED HER TO USE CALL LIGHT FOR ANY NEEDS
[2019-05-16 12:04] VITALS: BP 117/62
--- NOTE | 2019-05-16 14:02 | NUR ---
5N in process of evaluation for acute rehab post stroke. Patient transferred to acute care from [facility] unit on . Patient then transferred to ICU. Dtr has not spoken with acute care casemgr since phone call today. Discussed 5N with dtr who has many questions and rehab liason to also call dtr. Dtr reports plan for patient to return home post rehab. Discussed she will initially need 24/7 supervision. Dtr then questioned private dty. Left infomration in room. Dtr works during day she is only child. Dtr interested in 5N for continuity of care. Sp with 5N liason later today who sp with dtr. Dtr told liason to proceed with process of transfer to 5N. Liason to submit auth to [facility]. Tenative plan 5N once rec auth.
--- NOTE | 2019-05-16 15:53 | NUR ---
PATIENT MEDICALLY READY TO REQUEST AUTHORIZATION FOR ACUTE REHAB STAY. SKEIN STRAIGHTENER SPOKE WITH PATIENT'S DAUGHTER THIS DATE. ACUTE REHAB EXPLAINED TO DAUGHTER ALONG WITH CONFIRMING THAT D/C PLAN WOULD BE BACK TO HOME WITH 24/ CARE IF NEEDED. DAUGHTER REQUESTED THAT LIAISON START AUTHORIZATION PROCESS. [facility] CONTACTED AND AUTHORIZATION PROCESS INITIATED. WILL AWAIT RESPONSE. WELDING MACHINE OPERATOR ULTRASONIC AND HOSPITALIST INFORMED. THANK YOU FOR THIS REFERRAL.
[2019-05-16 20:26] VITALS: BP 145/73
[2019-05-17 04:45] VITALS: BP 184/92
--- NOTE | 2019-05-17 05:05 | NUR ---
CONFUSED AT THE BEGINNING OF THE SHIFT.DAUGHTER CALLED TO CHECK ON PATIENT AND EXPRESS CONCERN ABOUT THE CONFUSION.PATIENT HAS HALLUCINATIONS THIS MORNING WELL BUT IS NOT TRYING TO GET OUT OF BED.REPOSITION PATIENT.MONITOR SHOWS SR,SA.POC CONTINUED.
[2019-05-17 07:30] VITALS: BP 144/73
[2019-05-17 11:30] VITALS: BP 187/86
[2019-05-17 14:06] LABS: URINE BILIRUBIN NEGATIVE (Negative); URINE BLOOD 1+ (Negative); URINE CLARITY CLEAR; URINE COLOR YELLOW; URINE GLUCOSE-RANDOM* NEGATIVE (Negative); URINE KETONES NEGATIVE (Negative); URINE LEUKOCYTES 1+ (Negative); URINE NITRITE NEGATIVE (Negative); URINE PROTEIN (DIPSTICK) 2+ (Negative); URINE SPECIFIC GRAVITY >= 1.030 (1.005-1.035); URINE UROBILINOGEN 0.2 E.U./dl (0.2-1.0)
[2019-05-17 14:15] LABS: BACTERIA 1-9 Few /HPF (None Seen); CASTS None Seen /LPF (None Seen); CRYSTALS None Seen /LPF (None Seen); SQUAMOUS 0-3 Few /LPF (0-3); URINE RBC 3-10 Few /HPF (0-2); URINE WBC >25 Many /HPF (0-5); YEAST Present (None Seen)
--- NOTE | 2019-05-17 15:33 | NUR ---
spoke with dtr today and cont plan for 5N for dc. 5N seeking auth.
[2019-05-17 16:30] VITALS: BP 146/89
[2019-05-17 20:10] VITALS: BP 118/66
--- NOTE | 2019-05-18 04:32 | NUR ---
PT ALERT AND ORIENTED X 3. VSS. DENIES CHEST PAIN SOB. GENERAL WEAKNESS, PT USED BEDPAN FOR ELIMINATION, CATHETER SECURE. SLEPT MOST OF THE NIGHT. Q2 TURNS TOLERATED. WILL CONTINUE WITH CURRENT POC.
[2019-05-18 04:45] VITALS: BP 157/77
[2019-05-18 05:19] LABS: HEMATOCRIT 33.3 % (37.0-47.0); HEMOGLOBIN 10.7 gm/dL (12.0-15.0); MCH 27.2 pg (26.0-34.0); MCHC 32.1 g/dL (28.0-37.0); MCV 84.5 fL (80.0-100.0); RBC 3.94 mil/uL (4.20-5.00); WBC 5.3 thou/uL (4.0-11.0)
[2019-05-18 05:23] LABS: CREATININE 1.1 mg/dL (0.6-1.0); POTASSIUM 3.7 mmol/L (3.5-5.1)
[2019-05-18 07:41] VITALS: BP 179/75
[2019-05-18 11:11] VITALS: BP 136/65
[2019-05-18] MEDS ORDERED: PROBIOTIC1 EAC1 PO (11:51)
[2019-05-18] MEDS ORDERED: NORVASC5 MG PO (11:51)
[2019-05-18] MEDS ORDERED: PEPCID20 MG PO (11:51)
[2019-05-18] MEDS ORDERED: TYLENOL325 MG PO (11:51)
[2019-05-18] MEDS ORDERED: LIPITOR40 MG PO (11:51)
[2019-05-18] MEDS ORDERED: HEPARIN SO5000 UNIT/ SUBQ (11:51)
[2019-05-18] MEDS ORDERED: KEFLEX500 M1 PO (11:51)
[2019-05-18] MEDS ORDERED: PLAVIX 75 MG TA75 M1 PER TUBE (11:51)
--- NOTE | 2019-05-18 16:00 | NUR ---
ASSUMED CARE OF PT AT SHIFT CHANGE. ASSESSMENTS CHARTED. MEDS GIVEN PER MAY. CORRECTIONAL OFFICER CAPTAIN&OX3, FORGETFULL. NO C/O PAIN. PICKENS IN PLACE. PT WORKED WITH PT, WALKED 10-15 STEPS IN CHO[place]. DISCHARGE ORDERS COMPLETE. TELE DC'D. PT DISCHARGED TO 5N, REHAB.
== END 2019-05-18 14:56 | DRG 64 ==
LOC: 2N 18:56 → ICU 18:56 → 2N 18:56 → ICU 05-04 13:16 → 2N 05-14 17:54 → ENTRNSPT 05-18 14:16 → EDTRNSPTSTS 05-18 14:18 → 2N 05-18 14:56
PROVIDERS: Hospitalist; Internal Medicine; Internal Medicine Pulmonary Disease; Psychiatry & Neurology Psychiatry; ADMIT Internal Medicine
PROC: 5A1955Z Respiratory Ventilation, Greater than 96 Consecutive Hours (ICD-10-PCS; principal; 2019-05-04)
PROC: B548ZZA Ultrasonography of Superior Vena Cava, Guidance (ICD-10-PCS; 2019-05-04)
PROC: 0BH17EZ Insertion of Endotracheal Airway into Trachea, Via Natural or Artificial Opening (ICD-10-PCS; 2019-05-04)
PROC: 02HV33Z Insertion of Infusion Device into Superior Vena Cava, Percutaneous Approach (ICD-10-PCS; 2019-05-04)
DX: I63.511 Cerebral infarction due to unspecified occlusion or stenosis of right middle cerebral artery (principal); J96.01 Acute respiratory failure with hypoxia; K72.91 Hepatic failure, unspecified with coma; J18.9 Pneumonia, unspecified organism; N17.9 Acute kidney failure, unspecified; B37.89 Other sites of candidiasis; L97.929 Non-pressure chronic ulcer of unspecified part of left lower leg with unspecified severity; G93.40 Encephalopathy, unspecified; L03.116 Cellulitis of left lower limb; G81.14 Spastic hemiplegia affecting left nondominant side; R65.10 Systemic inflammatory response syndrome (SIRS) of non-infectious origin without acute organ dysfunction; N39.0 Urinary tract infection, site not specified; T68.XXXA Hypothermia, initial encounter; E83.42 Hypomagnesemia; N18.3 Chronic kidney disease, stage 3 (moderate); D64.9 Anemia, unspecified; E78.5 Hyperlipidemia, unspecified; D69.6 Thrombocytopenia, unspecified; K21.9 Gastro-esophageal reflux disease without esophagitis; E16.2 Hypoglycemia, unspecified; Z60.2 Problems related to living alone; E78.00 Pure hypercholesterolemia, unspecified; F03.90 Unspecified dementia, unspecified severity, without behavioral disturbance, psychotic disturbance, mood disturbance, and anxiety; E66.9 Obesity, unspecified; R26.9 Unspecified abnormalities of gait and mobility; H53.462 Homonymous bilateral field defects, left side; I83.899 Varicose veins of unspecified lower extremity with other complications; F32.9 Major depressive disorder, single episode, unspecified; I12.9 Hypertensive chronic kidney disease with stage 1 through stage 4 chronic kidney disease, or unspecified chronic kidney disease; R13.10 Dysphagia, unspecified; H53.47 Heteronymous bilateral field defects; I49.1 Atrial premature depolarization; R41.0 Disorientation, unspecified; Z90.12 Acquired absence of left breast and nipple; Z91.018 Allergy to other foods; Z79.899 Other long term (current) drug therapy; Z85.3 Personal history of malignant neoplasm of breast; Z68.31 Body mass index [BMI] 31.0-31.9, adult; Z88.2 Allergy status to sulfonamides; Z88.8 Allergy status to other drugs, medicaments and biological substances; Z91.048 Other nonmedicinal substance allergy status
CPT/HCPCS: 10078; 10081; 27000

== ENCOUNTER 2019-05-18 09:17 | Inpatient (IN) | payer OTHER ==
[~2019-05-18] VITALS: Ht 157.5 cm; Wt 90.7 kg
[2019-05-18] MEDS ORDERED: PEPCID20 MG PO (11:51)
[2019-05-18] MEDS ORDERED: TYLENOL325 MG PO (11:51)
[2019-05-18] MEDS ORDERED: PROBIOTIC1 EAC1 PO (11:51)
[2019-05-18] MEDS ORDERED: PLAVIX 75 MG TA75 M1 PER TUBE (11:51)
[2019-05-18] MEDS ORDERED: NORVASC5 MG PO (11:51)
[2019-05-18] MEDS ORDERED: LIPITOR40 MG PO (11:51)
[2019-05-18] MEDS ORDERED: HEPARIN SO5000 UNIT/ SUBQ (11:51)
[2019-05-18] MEDS ORDERED: KEFLEX500 M1 PO (11:51)
[2019-05-18 19:15] VITALS: BP 131/66
[2019-05-19 06:13] LABS: HEMOGLOBIN 11.1 gm/dL (12.0-15.0); MCH 27.1 pg (26.0-34.0); MCHC 31.8 g/dL (28.0-37.0); MCV 85.3 fL (80.0-100.0); RBC 4.11 mil/uL (4.20-5.00)
[2019-05-19 06:31] LABS: CALCIUM 9.2 mg/dL (8.5-10.1); CREATININE 1.1 mg/dL (0.6-1.0); POTASSIUM 3.4 mmol/L (3.5-5.1)
[2019-05-19 08:38] VITALS: BP 175/80
[2019-05-19 20:00] VITALS: BP 153/81
[2019-05-20 07:50] VITALS: BP 70/44
[2019-05-20 08:06] VITALS: BP 92/50
[2019-05-20 19:15] VITALS: BP 135/77
[2019-05-21 07:20] VITALS: BP 165/74
[2019-05-21 20:12] VITALS: BP 167/69
[2019-05-22 08:00] VITALS: BP 145/85
[2019-05-22 19:28] VITALS: BP 119/73
[2019-05-23 08:02] LABS: ABSOLUTE NEUTROPHILS 2.7 thou/uL (1.4-8.2); BASOPHILS 2.4 % (0.0-2.0); EOSINOPHILS 2.9 % (0.0-3.0); HEMATOCRIT 33.4 % (37.0-47.0); HEMOGLOBIN 10.7 gm/dL (12.0-15.0); LYMPHOCYTES 25.4 % (24.0-44.0); MCH 27.4 pg (26.0-34.0); MCHC 32.1 g/dL (28.0-37.0); MCV 85.6 fL (80.0-100.0); MONOCYTES 9.4 % (1.0-8.0); PLATELET COUNT 219 thou/uL (150-400); POLYS 59.9 % (36.0-66.0); RDW 16.1 % (10.5-14.5); WBC 4.4 thou/uL (4.0-11.0)
[2019-05-23 08:11] LABS: CALCIUM 9.4 mg/dL (8.5-10.1); CREATININE 1.1 mg/dL (0.6-1.0); MAGNESIUM 1.8 mg/dL (1.8-2.4); POTASSIUM 3.5 mmol/L (3.5-5.1)
[2019-05-23 19:00] VITALS: BP 149/73
--- NOTE | 2019-05-23 20:22 | HC ---
[facility] [place] [address] CONSULTATION Name: GREGORIO GENAO Room #: 506-1 ADM IN M.R.#: [id number] Admission: 05/18/19 Attend Phys: Long Navas MD Discharge: Date of : 42 Report #: [id number] THIS REPORT FOR: cc: Sanju Dominguez,Ramos Banda. PhD ~ CC: Long Dominguez DATE OF SERVICE: 05/21/2019 NEUROBEHAVIORAL STATUS EXAM ATTENDING PHYSICIAN: Long Navas MD ARMATURE WINDER REPAIR: Ramos Matute, PhD CLINICAL PRESENTATION: The patient is a 78-year-old female admitted to the rehabilitation unit at [facility] for comprehensive inpatient rehabilitation program to improve functional mobility, activities of daily living and self-care and mental status secondary to deficits from a large right middle cerebral artery CVA. She is reported to have initially been treated on the psychiatric unit with hallucinations and severe depression. Her condition deteriorated and subsequently she had a stroke. Following acute management of the stroke she was admitted for inpatient rehabilitation. Her assessment on admission to the rehabilitation unit includes right middle cerebral artery CVA, large left hemiparesis, urinary tract infection, acute respiratory failure, status post extubation, anemia, chronic kidney disease stage 3, hypertension and hyperlipidemia. A complete description of her medical condition and history can be found in her medical record. Neuropsychological consultation was requested to provide assistance in the assessment of cognitive and emotional status and to provide recommendations and services. The patient is reported to have been independent with activities of daily living approximately 6 months prior to her deterioration in functioning. She had a 6 month history of balance problems and a slight tremor. She was able to manage money and medications prior to this most recent psychiatric hospitalization. It should be noted that 2 days prior to the psychiatric admission, she had auditory hallucinations and deterioration in functioning that led to her need for admission and treatment. The patient has been for about 32 years. She does live alone and has one daughter. She is a high school graduate. She reported having worked in [employer] [facility] [employer] prior to her snf. [facility] [address] [place] [address] CONSULTATION Name: CHADWICKGREGORIO Room #: 506-1 [facility] IN ..#: [id number] Admission: 05/18/19 Attend Phys: Long Navas MD Discharge: Date of : 42 Report #: [id number] TECHNIQUES UTILIZED: Clinical interview, review of medical records, staff consultation and behavioral observation, mini mental status exam 2 standard version, verbal fluency assessment (category and letter). EXAMINATION FINDINGS: The patient was alert and cooperative with the assessment. She accurately described the stroke as being the reason for her hospitalization. She describes symptoms to include poor sleep, anxiety, difficulty with word finding and memory. Slight difficulty with verbal fluency is described prior to this most recent medical event. She does not report auditory or visual hallucinations currently. There is no evidence of aphasia. There is noted no severe left neglect. Her performance on the MMSE 2 brief version was at the 2nd percentile with a raw score of 12/16 and a T score of 29. She was 3/3 for initial registration, 2/5 for orientation to time, 4/[address] and 3/3 for immediate recall of 3 items after a brief time delay and distraction. Her performance on the MMSE 2 standard version was a raw score of 24/30, which is a T score of 39 and percentile rank of 14. She was 4/5 for serial sevens, 2/2 for naming, 1/1 for repetition, 3/3 for auditory comprehension. She could read and follow a single command and write a sentence. The patient has severe neglect and was unable to copy a simple geometric design. Letter fluency was in the borderline range with a raw score of 10, T score of 29th percentile, rank of 2. Category fluency was extremely low with a raw score of 20, T score of 26th percentile, rank of 1. Overall, verbal fluency, total score was extremely low with a raw score of 30, T score 22 percentile, rank of less than 1. The patient is presenting with a vajydwim-sd-wloszl deficits in thought organization and executive functioning, likely secondary to right cerebrovascular accident. Increased anxiety is reported. She is not reporting hallucinations. She is being followed by Psychiatry. DIAGNOSTIC IMPRESSION: Vascular neurocognitive disorder, without behavior disorder -- extent to be determined, likely in the moderate to severe range. Unspecified anxiety disorder. RECOMMENDATIONS: The patient will likely require increased supervision and structure upon her return home. She will need help with medical, financial and nutritional management. Decreased executive functioning will require her to have increased assistance in problem solving and decision making. Continued speech therapy will be of benefit for cognitive rehabilitation. [address] [address] CONSULTATION Name: GREGORIO GENAO Room #: 506-1 [facility] IN M.R.#: [id number] Admission: 05/18/19 Attend Phys: Long Navas MD Discharge: Date of : 42 Report #: [id number] A followup neuropsych assessment in approximately 3-6 months may be of benefit to clarify neurocognitive and emotional state. Thank you very much for allowing me to provide the consultation on this patient. <ELECTRONICALLY SIGNED> By: Ramos Matute, PhD 05/23/192021 1625 182 Ramos Matute, PhD /nt
[2019-05-24 07:50] VITALS: BP 152/74
[2019-05-24 19:20] VITALS: BP 130/64
[2019-05-24 21:56] LABS: URINE BILIRUBIN 1+ (Negative); URINE BLOOD 3+ (Negative); URINE CLARITY CLOUDY; URINE COLOR YELLOW; URINE GLUCOSE-RANDOM* NEGATIVE (Negative); URINE KETONES TRACE (Negative); URINE NITRITE-REFLEX NEGATIVE (Negative); URINE PROTEIN (DIPSTICK) 2+ (Negative); URINE SPECIFIC GRAVITY >= 1.030 (1.005-1.035)
[2019-05-24 22:01] LABS: URINE LEUKOCYTES-REFLEX 2+ (Negative)
[2019-05-24 22:04] LABS: CALCIUM OXALATE 4-10 Moderate /LPF (None Seen); HYALINE CASTS 0-3 Few /LPF (None Seen); MUCUS 0-3 Light strn/LPF (None Seen); SQUAMOUS 4-10 Moderate /LPF (0-3); URINE RBC >20 Many /HPF (0-2); YEAST-REFLEX Present (None Seen)
[2019-05-25 09:20] VITALS: BP 151/83
[2019-05-25 19:50] VITALS: BP 114/81
[2019-05-26 08:00] VITALS: BP 109/56
--- NOTE | 2019-05-26 09:10 | EKG ---
[facility] [place] [address] ELECTROCARDIOGRAM REPORT Name: GREGORIO GENAO Room #: 506-1 ADM IN M.R.#: [id number] Admission: 05/18/19 Attend Phys: Long Navas MD Discharge: Date of : 42 Report #: [id number] THIS REPORT FOR: cc: Sanju Dominguez Theodore M. DO Lundgren, Craig H. MD [facility] THIS REPORT FOR: //name// [facility] Test Date: 2019-05-26 Test Time: 08:44:26 Pat Name: GREGORIO GENAO Department: Room: 506 1 Gender: F Balance Engineer: delicia : 1940 Requested By: Osmani Fabian Order Number: [id number] MD: Joshua Benavidez Measurements Intervals Warren Rate: 80 P: 64 WV: 157 QRS: 45 QRSD: 100 T: -33 QT: 363 QTc: 419 Interpretive Statements Sinus rhythm RSR' in V1 or V2, right VCD Compared to ECG 05/07/2019 08:28:42 no significant change was found Electronically Signed On 05-26-2019 9:09:16 AUTOMOTIVE PRODUCT ENGINEER by Joshua Benavidez [email or web address] <ELECTRONICALLY SIGNED> By: Joshua Benavidez MD, [facility] 05/26/1909 Joshua Benavidez MD, FAC /EPI
[2019-05-26 12:22] LABS: HEMATOCRIT 37.9 % (37.0-47.0); HEMOGLOBIN 11.8 gm/dL (12.0-15.0); MCH 26.9 pg (26.0-34.0); MCHC 31.2 g/dL (28.0-37.0); MCV 86.3 fL (80.0-100.0); RBC 4.39 mil/uL (4.20-5.00); RDW 16.3 % (10.5-14.5); WBC 5.3 thou/uL (4.0-11.0)
[2019-05-26 12:36] LABS: ANION GAP 9 mmol/L (7-16); BUN 21 mg/dL (7-18); CALCIUM 10.4 mg/dL (8.5-10.1); CHLORIDE 105 mmol/L (98-107); CO2 26 mmol/L (21-32); CREATININE 1.5 mg/dL (0.6-1.0); GLUCOSE 125 mg/dL (74-106); MAGNESIUM 1.8 mg/dL (1.8-2.4); SODIUM 140 mmol/L (136-145); TROPONIN-I <0.06 ng/mL (<0.06)
[2019-05-26 21:06] VITALS: BP 163/70; BP 167/79
[2019-05-27 06:13] LABS: HEMATOCRIT 35.2 % (37.0-47.0); HEMOGLOBIN 11.3 gm/dL (12.0-15.0); MCH 27.5 pg (26.0-34.0); MCV 85.9 fL (80.0-100.0); RBC 4.1 mil/uL (4.20-5.00); RDW 16.4 % (10.5-14.5); WBC 4.5 thou/uL (4.0-11.0)
[2019-05-27 06:22] LABS: CALCIUM 9.2 mg/dL (8.5-10.1); CREATININE 1.3 mg/dL (0.6-1.0); MAGNESIUM 1.6 mg/dL (1.8-2.4); POTASSIUM 3.6 mmol/L (3.5-5.1)
[2019-05-27 07:41] VITALS: BP 142/63
[2019-05-27 19:28] VITALS: BP 141/72
[2019-05-28 07:40] VITALS: BP 142/69
[2019-05-28 18:34] LABS: URINE BILIRUBIN NEGATIVE (Negative); URINE BLOOD NEGATIVE (Negative); URINE CLARITY CLEAR; URINE COLOR YELLOW; URINE GLUCOSE-RANDOM* NEGATIVE (Negative); URINE KETONES NEGATIVE (Negative); URINE LEUKOCYTES-REFLEX TRACE (Negative); URINE NITRITE-REFLEX NEGATIVE (Negative); URINE PROTEIN (DIPSTICK) TRACE (Negative); URINE SPECIFIC GRAVITY 1.025 (1.005-1.035); URINE UROBILINOGEN 0.2 E.U./dl (0.2-1.0)
[2019-05-28 19:26] VITALS: BP 141/77
[2019-05-29 05:47] LABS: HEMOGLOBIN 10.9 gm/dL (12.0-15.0); MCH 27.4 pg (26.0-34.0); MCV 85.5 fL (80.0-100.0); RBC 3.98 mil/uL (4.20-5.00); RDW 16.3 % (10.5-14.5); WBC 3.7 thou/uL (4.0-11.0)
[2019-05-29 05:55] LABS: CALCIUM 9.1 mg/dL (8.5-10.1); CREATININE 1.2 mg/dL (0.6-1.0); MAGNESIUM 1.6 mg/dL (1.8-2.4); POTASSIUM 3.5 mmol/L (3.5-5.1)
[2019-05-29 08:00] VITALS: BP 142/65
[2019-05-29 20:20] VITALS: BP 132/65
[2019-05-30 05:09] LABS: HEMATOCRIT 35.4 % (37.0-47.0); HEMOGLOBIN 11.2 gm/dL (12.0-15.0); MCH 27.2 pg (26.0-34.0); MCHC 31.7 g/dL (28.0-37.0); MCV 85.9 fL (80.0-100.0); RBC 4.12 mil/uL (4.20-5.00); RDW 16.5 % (10.5-14.5); WBC 3.9 thou/uL (4.0-11.0)
[2019-05-30 05:13] LABS: CALCIUM 8.7 mg/dL (8.5-10.1); CREATININE 1.1 mg/dL (0.6-1.0); POTASSIUM 3.6 mmol/L (3.5-5.1)
[2019-05-30 08:09] VITALS: BP 133/77
[2019-05-30 09:53] VITALS: BP 113/62
[2019-05-30 09:54] VITALS: BP 84/48; BP 96/59
[2019-05-30 19:44] VITALS: BP 149/70
[2019-05-31 07:40] VITALS: BP 134/52
[2019-05-31 19:33] VITALS: BP 153/76
[2019-06-01 06:27] LABS: ABSOLUTE NEUTROPHILS 2.5 thou/uL (1.4-8.2); BASOPHILS 2.8 % (0.0-2.0); EOSINOPHILS 4.3 % (0.0-3.0); HEMOGLOBIN 10.9 gm/dL (12.0-15.0); LYMPHOCYTES 18.8 % (24.0-44.0); MCH 27.4 pg (26.0-34.0); MCV 85.6 fL (80.0-100.0); MONOCYTES 8.8 % (1.0-8.0); PLATELET COUNT 165 thou/uL (150-400); POLYS 65.3 % (36.0-66.0); RBC 3.97 mil/uL (4.20-5.00); RDW 16.7 % (10.5-14.5); WBC 3.8 thou/uL (4.0-11.0)
[2019-06-01 06:42] LABS: CALCIUM 8.9 mg/dL (8.5-10.1); MAGNESIUM 1.6 mg/dL (1.8-2.4); POTASSIUM 3.4 mmol/L (3.5-5.1)
[2019-06-01 10:30] VITALS: BP 107/77
[2019-06-01 19:52] VITALS: BP 144/75
[2019-06-02 08:00] VITALS: BP 130/64
[2019-06-02 08:49] VITALS: BP 130/64
[2019-06-02 19:05] VITALS: BP 172/81
[2019-06-03] VITALS: BP 140/80
[2019-06-03 05:34] LABS: ABSOLUTE NEUTROPHILS 2.1 thou/uL (1.4-8.2); BASOPHILS 1.9 % (0.0-2.0); EOSINOPHILS 3.3 % (0.0-3.0); HEMATOCRIT 32.8 % (37.0-47.0); HEMOGLOBIN 10.5 gm/dL (12.0-15.0); MCH 27.4 pg (26.0-34.0); MCV 85.4 fL (80.0-100.0); PLATELET COUNT 165 thou/uL (150-400); POLYS 60.8 % (36.0-66.0); RBC 3.84 mil/uL (4.20-5.00); RDW 17.1 % (10.5-14.5); WBC 3.5 thou/uL (4.0-11.0)
[2019-06-03 05:45] LABS: CREATININE 1.2 mg/dL (0.6-1.0); MAGNESIUM 1.6 mg/dL (1.8-2.4); POTASSIUM 3.6 mmol/L (3.5-5.1)
[2019-06-03 08:15] VITALS: BP 133/58
--- NOTE | 2019-06-03 13:29 | H ---
[facility] [place] [address] HISTORY AND PHYSICAL Name: GREGORIO GENAO Room #: 506-1 ADM IN M.R.#: [id number] Admission: 05/18/19 Attend Phys: Long Navas MD Discharge: Date of : 42 Report #: [id number] THIS REPORT FOR: cc: Sanju Dominguez,Long Miller MD ~ CC: Long Dominguez DATE OF SERVICE: 05/18/2019 HISTORY AND PHYSICAL AND POST-ADMISSION PHYSICIAN EVALUATION HISTORY OF PRESENT ILLNESS: The patient has been admitted for acute in-hospital inpatient rehabilitation post-CVA. Please see my prior consult note dictation. The patient had been over at the [facility] with hallucinations and severe depression, developed acute respiratory failure, transferred to acute care, was intubated initially, seen by Pulmonary. She was found to have an acute right middle cerebral artery ischemic CVA per brain imaging and was evaluated by Neurology. She was given Plavix. She continues to have severe swallowing problems, although she did initially require tube feedings. Done a thickened liquid diet. She had problems with urinary retention with a Goddard catheter. She has significant left visual field neglect. She has left-sided weakness. She has now been admitted for acute in-hospital inpatient rehabilitation. PAST MEDICAL HISTORY, ALLERGIES, SOCIAL HISTORY, HABITS, FAMILY HISTORY: Please see the history and physical documentation. MEDICATIONS: Please see the MAR. REVIEW OF SYSTEMS: No specific complaints of headache, shortness of breath, abdominal discomfort. No focal extremity pain complaints. Does not like the Goddard catheter. Please see the full review of systems as documented. PHYSICAL EXAMINATION: GENERAL: A 78-year-old female, in no obvious distress. The patient was seen earlier. She was pleasant, cooperative. VITAL SIGNS: The patient has temperature 97.8, pulse 67, respirations 16, blood pressure 175/80. HEENT: Appeared to be benign. CHEST: Sounded clear to auscultation. CARDIOVASCULAR: Regular rate and rhythm. ABDOMEN: Bowel sounds positive, nontender. GENITOURINARY: She has a Goddard catheter in place. NEUROLOGIC: Upon assessing her cranial nerves, she has definite left visual [address] [address] HISTORY AND PHYSICAL Name: GREGORIO GENAO Room #: 506-1 ADM IN [facility]#: [id number] Admission: 05/18/19 Attend Phys: Long Navas MD Discharge: Date of : 42 Report #: [id number] field neglect with left hemianopsia. 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 Right upper and right lower extremity were more of a grade 4-. Left lower extremity is probably a grade 3+. There is no focal calf swelling. Tone somewhat decreased on the left. No clonus. She is needing mod assist with sit to stand and is able to ambulate a short distance with a front-wheeled walker with max assist. ASSESSMENT: A 78-year-old white female with the following problem list: 1. Right middle cerebral artery cerebrovascular accident. 2. Left-sided hemiparesis. 3. Urinary tract infection with urinary retention. She does have the indwelling Goddard catheter. 4. Acute respiratory failure with extubation, which resolved. 5. Anemia. 6. Chronic kidney disease stage 3. 7. Prior history of hallucinations and severe depression for which [facility]. 8. Chronic kidney disease stage 3. 9. Hypertension. 10. Hyperlipidemia. PLAN: The patient has been admitted for acute in-hospital inpatient rehabilitation. From a postadmission physician evaluation perspective, there are no relevant changes since the preadmission screening. Please see the above review of prior and current medical and functional conditions and comorbidities. Please see the patient's previous and current functional status. As far as risk of complications, the patient has multiple medical comorbidities as noted above. Initial plan of care involves the interdisciplinary acute inpatient rehabilitation program. Measurable functional goals would be for her to hopefully improve as far as transfers, mobility, ADLs, swallowing and cognition with hopes of getting her back to the home setting. Another problem list would include dysphagia. She is on pureed diet with honey thickened liquids. Her prognosis is reasonably good with estimated length of stay probably at least 2-3 weeks. Goal would be hopefully back to the home setting with the daughter involved and probably some additional assistance. Potential barriers would include her multiple medical comorbidities and decreased functional status. The patient meets diagnostic criteria for an acute in-hospital inpatient rehabilitation stay. She meets the medical necessity criteria. We will have [address] [address] HISTORY AND PHYSICAL Name: GREGORIO GENAO Room #: 506-1 ADM IN M.R.#: [id number] Admission: 05/18/19 Attend Phys: Long Navas MD Discharge: Date of : 42 Report #: [id number] the it solutions sales consultant physicians continue to follow. She does have the tolerance for therapies and has appropriate discharge goals back to the home setting. <ELECTRONICALLY SIGNED> By: Long Navas MD 06/03/19 1329 [id number] Long Navas MD /[facility]
--- NOTE | 2019-06-03 13:35 | PLAN ---
[facility] [place] [address] REHAB UNIT PLAN OF CARE Name: GREGORIO GENOA Room #: 506-1 ADM IN M.R.#: [id number] Admission: 05/18/19 Attend Phys: Long Navas MD Discharge: Date of : 42 Report #: [id number] THIS REPORT FOR: //name// CC: Long Leosore Dominguez DATE OF SERVICE: 05/20/2019 PROGRESS NOTE AND OVERALL PLAN OF CARE SUBJECTIVE: The patient was seen back today in followup. She is in no distress. She is pleasant, alert. Temperature 97.7, pulse 57, respirations 18, blood pressure is 92/50. Transfers are max assist, gait max assist of 26 feet with a quad cane. Upper body dressing is max assist, lower body dressing is max assist. She is on a pureed honey thickened liquid diet. She had labs yesterday, BUN was fine at 14 with creatinine 1.1, otherwise, deferring to the medical service with Internal Medicine following regarding her medical issues. ASSESSMENT: 1. Right middle cerebral artery, cerebrovascular accident. 2. Left-sided hemiparesis. 3. Urinary tract infection with urinary retention. 4. Acute respiratory failure, which has resolved. 5. Anemia. 6. Severe dysphagia. 7. Chronic kidney disease stage 3. 8. Hypertension. 9. Hyperlipidemia. PLAN: The overall plan of care is based on the preadmission screen, post-admission physician evaluation and information garnered from therapy assessments. 1. Estimated length of stay is probably at least 2-3 weeks. 2. Medical prognosis is reasonably good. 3. Anticipated interventions includes the interdisciplinary acute inpatient rehabilitation program. 4. Anticipated functional outcomes would be for the patient to become modified independent with transfers, mobility, ADLs and to improve as far as swallowing and cognition, communication, so she can hopefully return back to her prior living situation. 5. Discharge destination would likely be home with family involved and probably some increased private duty. 6. Expected therapy by discipline includes PT, OT and speech 1 hour per day [address] [address] REHAB UNIT PLAN OF CARE Name: GREGORIO GENAO Room #: 506-1 ADM IN M.R.#: [id number] Admission: 05/18/19 Attend Phys: Long Navas MD Discharge: Date of : 42 Report #: [id number] each five days a week throughout the duration of the acute inpatient rehabilitation stay. <ELECTRONICALLY SIGNED> By: Long Navas MD 06/03/19 [id number] Long Navas MD /PMT
[2019-06-03 19:46] VITALS: BP 142/71
[2019-06-04 08:00] VITALS: BP 108/73
[2019-06-04 21:12] VITALS: BP 134/64
[2019-06-05 07:15] VITALS: BP 139/67
[2019-06-05 19:50] VITALS: BP 148/67
[2019-06-06 08:00] VITALS: BP 125/51
[2019-06-06 20:05] VITALS: BP 119/54
[2019-06-07 06:50] LABS: ABSOLUTE NEUTROPHILS 3.9 thou/uL (1.4-8.2); BASOPHILS 1.1 % (0.0-2.0); EOSINOPHILS 2.8 % (0.0-3.0); HEMATOCRIT 36.5 % (37.0-47.0); HEMOGLOBIN 11.5 gm/dL (12.0-15.0); LYMPHOCYTES 16.7 % (24.0-44.0); MCH 27.2 pg (26.0-34.0); MCHC 31.6 g/dL (28.0-37.0); MCV 86.2 fL (80.0-100.0); PLATELET COUNT 189 thou/uL (150-400); POLYS 68.4 % (36.0-66.0); RBC 4.24 mil/uL (4.20-5.00); RDW 16.9 % (10.5-14.5); WBC 5.6 thou/uL (4.0-11.0)
[2019-06-07 06:58] LABS: CALCIUM 9.4 mg/dL (8.5-10.1); CREATININE 1.1 mg/dL (0.6-1.0); MAGNESIUM 1.9 mg/dL (1.8-2.4)
[2019-06-07 07:45] VITALS: BP 140/84
[2019-06-07 19:24] VITALS: BP 119/65
[2019-06-08 08:00] VITALS: BP 91/57
[2019-06-08 20:00] VITALS: BP 140/66
[2019-06-09 08:00] VITALS: BP 147/93
[2019-06-09 20:00] VITALS: BP 137/71
[2019-06-10 07:47] VITALS: BP 120/70
[2019-06-10] MEDS ORDERED: ASPIR 8181 MG PO (11:55)
== END 2019-06-10 17:20 | DRG 56 ==
PROVIDERS: Internal Medicine; Nurse Practitioner; Nurse Practitioner Family; ADMIT Physical Medicine & Rehabilitation
DX: I69.354 Hemiplegia and hemiparesis following cerebral infarction affecting left non-dominant side (principal); I63.511 Cerebral infarction due to unspecified occlusion or stenosis of right middle cerebral artery; J96.00 Acute respiratory failure, unspecified whether with hypoxia or hypercapnia; N39.0 Urinary tract infection, site not specified; G93.40 Encephalopathy, unspecified; N17.9 Acute kidney failure, unspecified; E46 Unspecified protein-calorie malnutrition; L03.119 Cellulitis of unspecified part of limb; R33.9 Retention of urine, unspecified; D64.9 Anemia, unspecified; R13.10 Dysphagia, unspecified; N18.3 Chronic kidney disease, stage 3 (moderate); I12.9 Hypertensive chronic kidney disease with stage 1 through stage 4 chronic kidney disease, or unspecified chronic kidney disease; E78.5 Hyperlipidemia, unspecified; R41.9 Unspecified symptoms and signs involving cognitive functions and awareness; F41.9 Anxiety disorder, unspecified; F32.9 Major depressive disorder, single episode, unspecified; Z90.12 Acquired absence of left breast and nipple; Z85.3 Personal history of malignant neoplasm of breast; E87.6 Hypokalemia; E55.9 Vitamin D deficiency, unspecified; Z68.37 Body mass index [BMI] 37.0-37.9, adult
CPT/HCPCS: 10112